=== PATIENT | female | born 1935 | race Caucasian/White ===

== ENCOUNTER 2016-10-21 15:35 | Inpatient (IN) | payer MEDICARE, MEDICAID ==
[~2016-10-21] VITALS: Ht 165.1 cm; Wt 79.4 kg
[~2016-10-21 15:35] MED LIST: CLON1TAB4 PO; CLOP75TA33 PO; CYAN10009 PO; DONE10TA43 PO; FURO40TA5 PO; INSU3INS6 SUBCUT; LEVO50TA8 PO; MEMA5TAB15 PO; OMEP20CA10 PO; POTA20TA12 PO; QUET25TA PO; QUET50TA PO
[2016-10-21] MEDS ORDERED: ALBUTEROL (0.083%) 2.5MG/3ML NEB HHN STA (17:47)
[2016-10-21] MEDS ORDERED: NITROGLYCERIN OINT 1GM/INCH UDPKT TD ONE (18:00)
[2016-10-21] MEDS ORDERED: FUROSEMIDE 40MG/4ML VIAL IV ONE (18:00)
[2016-10-21] MEDS ORDERED: ASPIRIN 81MG TABLET PO ONE (18:00)
[2016-10-21 18:15] LABS: BASOPHILS % 1.1 % (0.0-2.0); EOSINOPHILS % 1.5 % (0.0-5.0); HEMATOCRIT. 42.5 % (36.0-48.0); HEMOGLOBIN. 14.1 g/dL (12.0-16.0); LYMPHOCYTES % 31.5 % (20.0-50.0); MEAN CORPUSCULAR HEMOGLOBIN 28.7 pg (28.0-32.0); MEAN CORPUSCULAR VOLUME 86.1 fL (81.0-99.0); NEUTROPHILS % 55.9 % (40.0-76.0); PLATELET 232 x1000/uL (130-400); RED BLOOD CELL COUNT 4.93 mill/uL (4.2-5.4); RED CELL DISTRIBUTION WIDTH 14.6 % (11.6-14.6)
[2016-10-21 18:21] LABS: PROTHROMBIN TIME 10.8 sec (9.4-11.6)
[2016-10-21 18:23] LABS: CARBON DIOXIDE 29 mEq/L (21-32); CHLORIDE 103 mEq/L (98-107)
[2016-10-21 18:30] LABS: TROPONIN I < 0.02 ng/mL (0.00-0.04)
[2016-10-21] MEDS ORDERED: IPRATROPIUM/ALBUTEROL 0.5-3(2.5)MG/3ML NEB INH PRN (22:15)
[2016-10-21] MEDS ORDERED: DOCUSATE SODIUM 100MG CAPSULE PO PRN (22:15)
[2016-10-21] MEDS ORDERED: ONDANSETRON HCL 4MG/2ML VIAL IV PRN (22:15)
[2016-10-21] MEDS ORDERED: ACETAMINOPHEN 325MG TABLET PO PRN (22:15)
[2016-10-21] MEDS ORDERED: INSLIS SQ ×2 (23:00)
[2016-10-21] MEDS ORDERED: POTA20TA82 PO (23:00)
[2016-10-21] MEDS ORDERED: SPIR25TA4 PO (23:00)
[2016-10-21] MEDS ORDERED: INSLAN SQ (23:11)
[2016-10-21] MEDS ORDERED: MEMA10TA2 PO (23:11)
[2016-10-21] MEDS ORDERED: NON FORMULARY PATIENT HOME MED EA XX SCH (23:15)
[2016-10-21] MEDS ORDERED: DEXTROSE 50% WATER 50ML SYRINGE IV PRN (23:15)
[2016-10-21 23:55] VITALS: BP 109/57
[2016-10-22] VITALS: BP 129/57
[2016-10-22] MEDS: QUETIAPINE FUMARATE 50MG TABLET PO SCH ×2 (00:38→20:35)
[2016-10-22] MEDS: IPRATROPIUM/ALBUTEROL 0.5-3(2.5)MG/3ML NEB INH SCH ×4 (01:42→20:10)
[2016-10-22 04:00] VITALS: BP 132/64
[2016-10-22] MEDS: BLOOD SUGAR DIAGNOSTIC STRIP TEST SCH ×4 (06:25→20:36)
[2016-10-22] MEDS: LEVOTHYROXINE SODIUM 50MCG TABLET PO SCH (06:27)
[2016-10-22] MEDS: OMEPRAZOLE 20MG CAPSULE EXTENDED RELEASE PO SCH (06:27)
[2016-10-22 07:10] LABS: BASOPHILS % 0.7 % (0.0-2.0); EOSINOPHILS % 0.5 % (0.0-5.0); HEMATOCRIT. 40.2 % (36.0-48.0); HEMOGLOBIN. 13.3 g/dL (12.0-16.0); LYMPHOCYTES % 23.9 % (20.0-50.0); MEAN CORPUSCULAR HEMOGLOBIN 28.7 pg (28.0-32.0); MEAN CORPUSCULAR VOLUME 86.9 fL (81.0-99.0); MEAN PLATELET VOLUME 10.3 fl (7.4-10.4); MONOCYTES % 8.4 % (2.0-8.0); NEUTROPHILS % 66.5 % (40.0-76.0); PLATELET 228 x1000/uL (130-400); RED BLOOD CELL COUNT 4.62 mill/uL (4.2-5.4); RED CELL DISTRIBUTION WIDTH 14.6 % (11.6-14.6)
[2016-10-22] MEDS: INSULIN LISPRO 100 UNITS/ML SUBCUT SCH ×4 (07:50→20:36)
[2016-10-22 08:01] VITALS: BP 163/66
[2016-10-22 08:24] LABS: CARBON DIOXIDE 30 mEq/L (21-32); CHLORIDE 101 mEq/L (98-107)
[2016-10-22] MEDS: MEMANTINE HCL 10MG TABLET PO SCH ×2 (08:39→17:55)
[2016-10-22] MEDS: FUROSEMIDE 40MG TABLET PO SCH (08:39)
[2016-10-22] MEDS: POTASSIUM CHLORIDE 20MEQ TABLET SR PO SCH (08:39)
[2016-10-22] MEDS: CLOPIDOGREL 75MG TABLET PO SCH (08:39)
[2016-10-22] MEDS: QUETIAPINE FUMARATE 25MG TABLET PO SCH (08:39)
[2016-10-22] MEDS: SPIRONOLACTONE 25MG TABLET PO SCH ×2 (08:40→10:56)
[2016-10-22] MEDS ORDERED: POTASSIUM CHLORIDE 20MEQ TABLET SR PO NR (09:45)
[2016-10-22] MEDS ORDERED: INSULIN DETEMIR UD 100 UNITS/ML SYR SUBCUT SCH (10:00)
[2016-10-22] MEDS: AMLODIPINE 5MG TABLET PO SCH ×2 (10:55→20:35)
[2016-10-22] MEDS: DONEPEZIL HCL 10MG TABLET PO SCH (11:13)
[2016-10-22] MEDS: INSULIN DETEMIR UD 100 UNITS/ML SYR SUBCUT SCH (11:17)
[2016-10-22] MEDS: LOSARTAN POTASSIUM 25 MG TABLET PO SCH (11:22)
[2016-10-22 11:51] VITALS: BP 131/76
[2016-10-22] MEDS ORDERED: INSULIN LISPRO 100 UNITS/ML SUBCUT SCH ×2 (12:20→17:20)
[2016-10-22 15:55] VITALS: BP 106/72
[2016-10-22] MEDS ORDERED: QUETIAPINE FUMARATE 25MG TABLET PO SCH (17:00)
[2016-10-22 19:54] VITALS: BP 137/65
[2016-10-22] MEDS: BUDESONIDE 0.5MG/2ML NEB HHN SCH (20:09)
[2016-10-22] MEDS ORDERED: QUETIAPINE FUMARATE 50MG TABLET PO SCH (21:00)
[2016-10-22] MEDS ORDERED: CLONAZEPAM 1MG TABLET PO SCH (21:00)
[2016-10-23 00:19] VITALS: BP 110/51
[2016-10-23] MEDS: IPRATROPIUM/ALBUTEROL 0.5-3(2.5)MG/3ML NEB INH SCH ×2 (01:11→08:58)
[2016-10-23 05:09] VITALS: BP 139/69
[2016-10-23] MEDS: LEVOTHYROXINE SODIUM 50MCG TABLET PO SCH (06:36)
[2016-10-23] MEDS: OMEPRAZOLE 20MG CAPSULE EXTENDED RELEASE PO SCH (06:36)
[2016-10-23] MEDS: BLOOD SUGAR DIAGNOSTIC STRIP TEST SCH (06:38)
[2016-10-23 06:45] LABS: BASOPHILS % 0.9 % (0.0-2.0); HEMATOCRIT. 40.3 % (36.0-48.0); HEMOGLOBIN. 13.4 g/dL (12.0-16.0); LYMPHOCYTES % 31.6 % (20.0-50.0); MEAN CORPUSCULAR VOLUME 87.3 fL (81.0-99.0); MEAN PLATELET VOLUME 10.4 fl (7.4-10.4); MONOCYTES % 10.4 % (2.0-8.0); NEUTROPHILS % 55.1 % (40.0-76.0); PLATELET 221 x1000/uL (130-400); RED BLOOD CELL COUNT 4.61 mill/uL (4.2-5.4); RED CELL DISTRIBUTION WIDTH 14.8 % (11.6-14.6)
[2016-10-23 07:44] LABS: CARBON DIOXIDE 30 mEq/L (21-32); CHLORIDE 103 mEq/L (98-107)
[2016-10-23] MEDS: INSULIN LISPRO 100 UNITS/ML SUBCUT SCH (07:50)
[2016-10-23 08:02] VITALS: BP 117/56
[2016-10-23] MEDS: BUDESONIDE 0.5MG/2ML NEB HHN SCH (08:57)
[2016-10-23] MEDS: CLOPIDOGREL 75MG TABLET PO SCH (09:16)
[2016-10-23] MEDS: MEMANTINE HCL 10MG TABLET PO SCH (09:17)
[2016-10-23] MEDS: POTASSIUM CHLORIDE 20MEQ TABLET SR PO SCH (09:17)
[2016-10-23] MEDS: DONEPEZIL HCL 10MG TABLET PO SCH (09:17)
[2016-10-23] MEDS: LOSARTAN POTASSIUM 25 MG TABLET PO SCH (09:17)
[2016-10-23] MEDS: AMLODIPINE 5MG TABLET PO SCH (09:17)
[2016-10-23] MEDS: QUETIAPINE FUMARATE 25MG TABLET PO SCH (09:18)
[2016-10-23] MEDS: FUROSEMIDE 40MG TABLET PO SCH (09:19)
[2016-10-23] MEDS ORDERED: SPIRONOLACTONE 25MG TABLET PO SCH (09:30)
[2016-10-23] MEDS: INSULIN DETEMIR UD 100 UNITS/ML SYR SUBCUT SCH (10:00)
[2016-10-23 11:02] VITALS: BP 122/71
== END 2016-10-23 11:40 | disposition home or self-care (01) | DRG 140 ==
LOC: ER 16:16 → 6WST 21:08 → ENRESERV 21:28
PROVIDERS: ADMIT Family Medicine Adult Medicine; ATTEND Family Medicine Adult Medicine
DX: J44.1 Chronic obstructive pulmonary disease with (acute) exacerbation (principal); J96.01 Acute respiratory failure with hypoxia; J44.0 Chronic obstructive pulmonary disease with (acute) lower respiratory infection; F03.90 Unspecified dementia, unspecified severity, without behavioral disturbance, psychotic disturbance, mood disturbance, and anxiety; E11.9 Type 2 diabetes mellitus without complications; E03.9 Hypothyroidism, unspecified; E87.6 Hypokalemia; I25.10 Atherosclerotic heart disease of native coronary artery without angina pectoris; I10 Essential (primary) hypertension; F41.9 Anxiety disorder, unspecified; J20.9 Acute bronchitis, unspecified; K59.00 Constipation, unspecified; Z95.5 Presence of coronary angioplasty implant and graft; Z88.6 Allergy status to analgesic agent; Z88.5 Allergy status to narcotic agent; Z88.0 Allergy status to penicillin; Z79.4 Long term (current) use of insulin; Z79.02 Long term (current) use of antithrombotics/antiplatelets; Z90.49 Acquired absence of other specified parts of digestive tract; Z79.899 Other long term (current) drug therapy; Z82.49 Family history of ischemic heart disease and other diseases of the circulatory system
CPT/HCPCS: 36415; 71010; 74000; 76700; 80048; 80053; 82962; 83036; 83690; 83735; 83880; 84443; 84484; 85025; 85610; 93005; 93306; 93970; 94640; 94664; 96374; 99285; J1815; J1940; J2405; J7611; J7620; J7626

== ENCOUNTER 2016-12-12 10:30 | Emergency (ER) | payer MEDICARE, MEDICAID ==
[~2016-12-12] VITALS: Ht 165.1 cm; Wt 83.0 kg
[~2016-12-12 10:30] MED LIST changes: +INSLAN SQ; +INSLIS SQ; +MEMA10TA2 PO; +POTA20TA82 PO; +SPIR25TA4 PO
[2016-12-12 12:18] VITALS: BP 157/77
== END 2016-12-12 12:53 | disposition home or self-care (01) ==
LOC: ER 10:44
DX: B02.29 Other postherpetic nervous system involvement (principal); F03.90 Unspecified dementia, unspecified severity, without behavioral disturbance, psychotic disturbance, mood disturbance, and anxiety; I10 Essential (primary) hypertension; E11.9 Type 2 diabetes mellitus without complications; Z88.0 Allergy status to penicillin; Z88.5 Allergy status to narcotic agent; Z88.8 Allergy status to other drugs, medicaments and biological substances; Z79.4 Long term (current) use of insulin
CPT/HCPCS: 99283

== ENCOUNTER 2017-01-22 12:46 | Emergency (ER) | payer MEDICARE, MEDICAID ==
[~2017-01-22] VITALS: Ht 165.1 cm; Wt 70.0 kg
[2017-01-22 13:33] LABS: BASOPHILS % 0.6 % (0.0-2.0); EOSINOPHILS % 1.4 % (0.0-5.0); HEMATOCRIT. 39.1 % (36.0-48.0); HEMOGLOBIN. 12.9 g/dL (12.0-16.0); MEAN CORPUSCULAR HEMOGLOBIN 29.6 pg (28.0-32.0); MEAN CORPUSCULAR VOLUME 89.9 fL (81.0-99.0); MEAN PLATELET VOLUME 9.8 fl (7.4-10.4); MONOCYTES % 8.5 % (2.0-8.0); NEUTROPHILS % 62.5 % (40.0-76.0); PLATELET 236 x1000/uL (130-400); RED BLOOD CELL COUNT 4.35 mill/uL (4.2-5.4); RED CELL DISTRIBUTION WIDTH 14.6 % (11.6-14.6)
[2017-01-22 13:35] LABS: PROTHROMBIN TIME 10.4 sec (9.4-11.6)
[2017-01-22 13:43] LABS: CARBON DIOXIDE 35 mEq/L (21-32); CHLORIDE 99 mEq/L (98-107)
[2017-01-22 14:59] VITALS: BP 128/74
== END 2017-01-22 15:01 | disposition home or self-care (01) ==
LOC: ER 13:04
DX: R53.1 Weakness (principal); R42 Dizziness and giddiness; I10 Essential (primary) hypertension; F03.90 Unspecified dementia, unspecified severity, without behavioral disturbance, psychotic disturbance, mood disturbance, and anxiety; E11.9 Type 2 diabetes mellitus without complications; Z88.0 Allergy status to penicillin; Z88.5 Allergy status to narcotic agent; Z79.4 Long term (current) use of insulin; Z79.899 Other long term (current) drug therapy
CPT/HCPCS: 36415; 71010; 80053; 83605; 85025; 85610; 87040; 93005; 99285

== ENCOUNTER 2017-02-06 09:50 | Emergency (ER) | payer MEDICARE, MEDICAID ==
[~2017-02-06] VITALS: Ht 162.6 cm; Wt 77.0 kg
[2017-02-06] MEDS ORDERED: ONDANSETRON HCL 4MG/2ML VIAL IV ONE (11:30)
[2017-02-06 11:48] LABS: CLARITY URINE CLOUDY (CLEAR); COLOR URINE YELLOW (YELLOW); KETONES URINE NEGATIVE (NEGATIVE); LEUKOCYTE ESTERASE URINE 3+ (NEGATIVE); NITRITE URINE POSITIVE (NEGATIVE); OCCULT BLOOD URINE TRACE (NEGATIVE); PH URINE 6.5 (4.5-8.0); PROTEIN URINE NEGATIVE (NEGATIVE); SPECIFIC GRAVITY URINE 1.012 (1.005-1.030)
[2017-02-06 11:50] LABS: BASOPHILS % 0.7 % (0.0-2.0); EOSINOPHILS % 0.7 % (0.0-5.0); HEMATOCRIT. 40.6 % (36.0-48.0); HEMOGLOBIN. 13.3 g/dL (12.0-16.0); LYMPHOCYTES % 18.9 % (20.0-50.0); MEAN CORPUSCULAR HEMOGLOBIN 29.6 pg (28.0-32.0); MEAN CORPUSCULAR VOLUME 90.3 fL (81.0-99.0); MONOCYTES % 7.3 % (2.0-8.0); NEUTROPHILS % 72.4 % (40.0-76.0); PLATELET 260 x1000/uL (130-400); RED BLOOD CELL COUNT 4.49 mill/uL (4.2-5.4); RED CELL DISTRIBUTION WIDTH 14.1 % (11.6-14.6)
[2017-02-06 12:02] LABS: CARBON DIOXIDE 37 mEq/L (21-32); CHLORIDE 99 mEq/L (98-107); TROPONIN I < 0.02 ng/mL (0.00-0.04)
[2017-02-06 12:18] VITALS: BP 127/78
== END 2017-02-06 12:46 | disposition home or self-care (01) ==
LOC: ER 09:50
DX: N39.0 Urinary tract infection, site not specified (principal); I10 Essential (primary) hypertension; K59.09 Other constipation; F03.90 Unspecified dementia, unspecified severity, without behavioral disturbance, psychotic disturbance, mood disturbance, and anxiety; E11.9 Type 2 diabetes mellitus without complications; Z88.0 Allergy status to penicillin; Z88.5 Allergy status to narcotic agent; Z88.8 Allergy status to other drugs, medicaments and biological substances; Z79.4 Long term (current) use of insulin; Z79.01 Long term (current) use of anticoagulants
CPT/HCPCS: 36415; 51701; 80053; 81001; 83735; 84484; 85025; 87077; 87086; 87186; 93005; 99285

== ENCOUNTER 2017-04-12 15:47 | Emergency (ER) | payer MEDICARE, MEDICAID ==
[~2017-04-12] VITALS: Ht 165.1 cm; Wt 86.0 kg
[2017-04-12] MEDS ORDERED: KETOROLAC 30MG/ML VIAL IV STA (16:08)
[2017-04-12 16:30] LABS: BASOPHILS % 0.9 % (0.0-2.0); EOSINOPHILS % 2.7 % (0.0-5.0); HEMATOCRIT. 41.8 % (36.0-48.0); HEMOGLOBIN. 13.8 g/dL (12.0-16.0); LYMPHOCYTES % 28.2 % (20.0-50.0); MEAN CORPUSCULAR HEMOGLOBIN 29.3 pg (28.0-32.0); MEAN CORPUSCULAR VOLUME 88.9 fL (81.0-99.0); MEAN PLATELET VOLUME 9.7 fl (7.4-10.4); MONOCYTES % 7.6 % (2.0-8.0); NEUTROPHILS % 60.6 % (40.0-76.0); PLATELET 265 x1000/uL (130-400)
[2017-04-12 16:37] LABS: INR 1.1
[2017-04-12 16:45] LABS: CHLORIDE 102 mEq/L (98-107); TROPONIN I < 0.02 ng/mL (0.00-0.04)
[2017-04-12 18:25] VITALS: BP 135/70
== END 2017-04-12 18:48 | disposition home or self-care (01) ==
LOC: ER 18:46
DX: M54.5 Low back pain (principal); G89.29 Other chronic pain; E11.65 Type 2 diabetes mellitus with hyperglycemia; I10 Essential (primary) hypertension; Z79.4 Long term (current) use of insulin; Z88.0 Allergy status to penicillin; Z88.6 Allergy status to analgesic agent; W01.0XXA Fall on same level from slipping, tripping and stumbling without subsequent striking against object, initial encounter; Y93.89 Activity, other specified; Y92.018 Other place in single-family (private) house as the place of occurrence of the external cause
CPT/HCPCS: 36415; 70450; 71045; 72125; 72131; 80053; 83880; 84484; 85025; 85610; 93005; 96374; 99285; J1885

== ENCOUNTER 2017-04-25 18:12 | Emergency (ER) | payer MEDICARE, MEDICAID ==
[~2017-04-25] VITALS: Ht 162.6 cm; Wt 78.0 kg
[2017-04-25 18:54] LABS: BASOPHILS % 1.2 % (0.0-2.0); HEMATOCRIT. 40.4 % (36.0-48.0); HEMOGLOBIN. 13.2 g/dL (12.0-16.0); MEAN CORPUSCULAR HEMOGLOBIN 29.1 pg (28.0-32.0); MEAN CORPUSCULAR VOLUME 88.8 fL (81.0-99.0); NEUTROPHILS % 51.8 % (40.0-76.0); PLATELET 241 x1000/uL (130-400); RED BLOOD CELL COUNT 4.54 mill/uL (4.2-5.4); RED CELL DISTRIBUTION WIDTH 14.7 % (11.6-14.6)
[2017-04-25 19:04] LABS: CHLORIDE 102 mEq/L (98-107)
[2017-04-25 19:10] LABS: TROPONIN I < 0.02 ng/mL (0.00-0.04)
[2017-04-25 19:13] LABS: PROTHROMBIN TIME 10.3 sec (9.4-11.6)
[2017-04-25 20:12] LABS: BG CARBOXYHEMOGLOBIN 1.2 % (0.5-1.5); BG DEOXYHEMOGLOBIN 8.4 % (0.0-5.0); BG FRACTION INSPIRED OXYGEN 21; BG HCO3 ACT 31.8 mmol/L (22.0-26.0); BG METHEMOGLOBIN 0.3 % (0.0-1.5); BG OXYGEN SATURATION 91.5 % (92.0-98.5); BG OXYHEMOGLOBIN 90.1 % (94.0-97.0); BG PCO2 50.5 mmHg (35.0-45.0); BG PH 7.417 (7.350-7.450); BG PO2 62.1 mmHg (75.0-100.0); BG SAMPLE SITE RIGHT BRACHIAL; BG TOTAL HEMOGLOBIN 13.8 g/dL (12.0-18.0); BG VENT MODE ROOM AIR
[2017-04-25] MEDS ORDERED: ALBUTEROL (0.5%) 2.5MG/0.5ML NEB HHN ONE (20:45)
[2017-04-25] MEDS ORDERED: METHYLPREDNISOLONE SOD SUCC 125 MG/2 ML VIAL IV ONE (20:45)
[2017-04-25 21:40] VITALS: BP 129/66
== END 2017-04-25 21:40 | disposition home or self-care (01) ==
LOC: ER 18:45 → EDBEDREQTM 20:40 → EDBEDREQ 20:40 → CANRESERV 21:25 → ENRESERV 21:25 → CANRESERV 21:28 → CANBEDREQ 21:34 → ER 21:40
DX: J44.1 Chronic obstructive pulmonary disease with (acute) exacerbation (principal); I10 Essential (primary) hypertension; E11.9 Type 2 diabetes mellitus without complications; Z88.0 Allergy status to penicillin; Z88.5 Allergy status to narcotic agent; Z88.8 Allergy status to other drugs, medicaments and biological substances; Z79.4 Long term (current) use of insulin
CPT/HCPCS: 36415; 36600; 71045; 80053; 82375; 82805; 83880; 84484; 85025; 85610; 93005; 94640; 96374; 99285; J2930; J7611

== ENCOUNTER 2017-08-02 09:54 | Emergency (ER) | payer MEDICARE, MEDICAID ==
[~2017-08-02] VITALS: Ht 160 cm; Wt 76.0 kg
[~2017-08-02 09:54] MED LIST changes: -CLON1TAB4 PO; +CLON1TAB5 PO; -SPIR25TA4 PO; +SPIR25TA6 PO
[2017-08-02] MEDS ORDERED: KETOROLAC 60MG/2ML VIAL IM ONE (10:15)
[2017-08-02 12:24] VITALS: BP 175/95
== END 2017-08-02 12:29 | disposition home or self-care (01) ==
LOC: ER 09:55
DX: M25.552 Pain in left hip (principal); M54.89 Other dorsalgia; M85.80 Other specified disorders of bone density and structure, unspecified site; I10 Essential (primary) hypertension; E78.00 Pure hypercholesterolemia, unspecified; E11.9 Type 2 diabetes mellitus without complications; Z79.4 Long term (current) use of insulin; Z88.0 Allergy status to penicillin; Z88.6 Allergy status to analgesic agent; W01.0XXA Fall on same level from slipping, tripping and stumbling without subsequent striking against object, initial encounter; Y93.89 Activity, other specified; Y92.89 Other specified places as the place of occurrence of the external cause
CPT/HCPCS: 71101; 72170; 96372; 99284; J1885

== ENCOUNTER 2017-08-23 11:51 | Emergency (ER) | payer MEDICARE, MEDICAID ==
[~2017-08-23] VITALS: Ht 165.1 cm; Wt 82.0 kg
[2017-08-23] MEDS ORDERED: MORPHINE SULFATE 4 MG/ML CPJ (NOT FOR IM USE) IV STA (12:12)
[2017-08-23] MEDS ORDERED: ONDANSETRON HCL 4MG/2ML VIAL IV STA (12:12)
[2017-08-23] MEDS ORDERED: METOCLOPRAMIDE HCL 10MG/2ML VIAL IV ONE (12:30)
[2017-08-23 12:59] LABS: BASOPHILS % 0.8 % (0.0-2.0); EOSINOPHILS % 2.3 % (0.0-5.0); HEMOGLOBIN. 13.7 g/dL (12.0-16.0); LYMPHOCYTES % 22.8 % (20.0-50.0); MEAN CORPUSCULAR HEMOGLOBIN 29.7 pg (28.0-32.0); MEAN CORPUSCULAR VOLUME 88.9 fL (81.0-99.0); MEAN PLATELET VOLUME 9.6 fl (7.4-10.4); MONOCYTES % 7.9 % (2.0-8.0); NEUTROPHILS % 66.2 % (40.0-76.0); PLATELET 224 x1000/uL (130-400); RED BLOOD CELL COUNT 4.61 mill/uL (4.2-5.4); RED CELL DISTRIBUTION WIDTH 14.3 % (11.6-14.6)
[2017-08-23 13:06] LABS: CHLORIDE 101 mEq/L (98-107)
[2017-08-23 13:08] LABS: PARTIAL THROMBOPLASTIN TIME 26.8 sec (23.4-31.0); PROTHROMBIN TIME 10.6 sec (9.4-11.6)
[2017-08-23 15:03] LABS: CLARITY URINE CLEAR (CLEAR); COLOR URINE YELLOW (YELLOW); KETONES URINE NEGATIVE (NEGATIVE); LEUKOCYTE ESTERASE URINE 1+ (NEGATIVE); NITRITE URINE POSITIVE (NEGATIVE); OCCULT BLOOD URINE NEGATIVE (NEGATIVE); PROTEIN URINE NEGATIVE (NEGATIVE); SPECIFIC GRAVITY URINE 1.019 (1.005-1.030); UROBILINOGEN URINE 0.2 E.U./dL (0.2-1.0)
[2017-08-23 15:55] VITALS: BP 119/54
== END 2017-08-23 16:00 | disposition home or self-care (01) ==
LOC: ER 12:04
DX: N39.0 Urinary tract infection, site not specified (principal); E11.9 Type 2 diabetes mellitus without complications; I10 Essential (primary) hypertension; Z88.0 Allergy status to penicillin; Z88.6 Allergy status to analgesic agent; Z88.5 Allergy status to narcotic agent; Z79.899 Other long term (current) drug therapy
CPT/HCPCS: 36415; 71045; 74176; 80053; 81003; 82962; 83690; 83880; 84484; 85025; 85610; 85730; 87077; 87086; 87186; 93005; 96374; 96375; 99285; J2270; J2765

== ENCOUNTER 2017-08-25 12:54 | Emergency (ER) | payer MEDICARE, MEDICAID ==
[~2017-08-25] VITALS: Ht 157.5 cm; Wt 70.0 kg
[2017-08-25] MEDS ORDERED: MECLIZINE 25MG TABLET PO ONE (13:45)
[2017-08-25] MEDS ORDERED: ONDANSETRON 4MG ODT PO ONE (13:45)
[2017-08-25 15:00] LABS: BASOPHILS % 0.7 % (0.0-2.0); EOSINOPHILS % 1.3 % (0.0-5.0); HEMATOCRIT. 41.3 % (36.0-48.0); HEMOGLOBIN. 13.8 g/dL (12.0-16.0); LYMPHOCYTES % 20.7 % (20.0-50.0); MEAN CORPUSCULAR HEMOGLOBIN 29.8 pg (28.0-32.0); MEAN CORPUSCULAR VOLUME 89.4 fL (81.0-99.0); MEAN PLATELET VOLUME 9.5 fl (7.4-10.4); NEUTROPHILS % 68.3 % (40.0-76.0); PLATELET 227 x1000/uL (130-400); RED BLOOD CELL COUNT 4.62 mill/uL (4.2-5.4); RED CELL DISTRIBUTION WIDTH 14.5 % (11.6-14.6)
[2017-08-25 15:05] LABS: CHLORIDE 103 mEq/L (98-107)
[2017-08-25 16:24] VITALS: BP 125/75
== END 2017-08-25 16:32 | disposition home or self-care (01) ==
LOC: ER 13:33
DX: F03.90 Unspecified dementia, unspecified severity, without behavioral disturbance, psychotic disturbance, mood disturbance, and anxiety (principal); I10 Essential (primary) hypertension; Z88.0 Allergy status to penicillin; Z88.5 Allergy status to narcotic agent; Z88.6 Allergy status to analgesic agent
CPT/HCPCS: 36415; 70450; 80048; 85025; 93005; 99285; Q0162; J8597

== ENCOUNTER 2017-08-26 11:09 | Emergency (ER) | payer MEDICARE, MEDICAID ==
[~2017-08-26] VITALS: Ht 160 cm; Wt 70.0 kg
[2017-08-26] MEDS ORDERED: SODIUM CHLORIDE 0.9% 1,000 ML IV ONE (11:40)
[2017-08-26] MEDS ORDERED: ONDANSETRON HCL 4MG/2ML VIAL IV STA (11:40)
[2017-08-26 12:12] LABS: BASOPHILS % 0.7 % (0.0-2.0); EOSINOPHILS % 2.2 % (0.0-5.0); HEMATOCRIT. 39.2 % (36.0-48.0); MEAN CORPUSCULAR HEMOGLOBIN 29.7 pg (28.0-32.0); MEAN CORPUSCULAR VOLUME 89.2 fL (81.0-99.0); MEAN PLATELET VOLUME 9.5 fl (7.4-10.4); MONOCYTES % 9.1 % (2.0-8.0); PLATELET 216 x1000/uL (130-400); RED BLOOD CELL COUNT 4.39 mill/uL (4.2-5.4); RED CELL DISTRIBUTION WIDTH 14.3 % (11.6-14.6)
[2017-08-26 12:16] LABS: CHLORIDE 100 mEq/L (98-107); PROTHROMBIN TIME 10.8 sec (9.4-11.6)
[2017-08-26 12:44] LABS: CLARITY URINE CLEAR (CLEAR); COLOR URINE YELLOW (YELLOW); KETONES URINE NEGATIVE (NEGATIVE); LEUKOCYTE ESTERASE URINE NEGATIVE (NEGATIVE); NITRITE URINE NEGATIVE (NEGATIVE); OCCULT BLOOD URINE NEGATIVE (NEGATIVE); PROTEIN URINE NEGATIVE (NEGATIVE); SPECIFIC GRAVITY URINE 1.018 (1.005-1.030); UROBILINOGEN URINE 0.2 E.U./dL (0.2-1.0)
[2017-08-26 14:47] VITALS: BP 135/77
== END 2017-08-26 14:48 | disposition home or self-care (01) ==
LOC: ER 11:09
DX: R53.1 Weakness (principal); R11.0 Nausea; R68.83 Chills (without fever); I10 Essential (primary) hypertension
CPT/HCPCS: 36415; 71045; 80053; 81003; 82962; 83605; 83880; 84484; 85025; 85610; 87040; 87086; 93005; 96374; 99285; J2405; J7030

== ENCOUNTER 2017-11-22 12:45 | Emergency (ER) | payer MEDICARE, MEDICAID ==
[~2017-11-22] VITALS: Ht 157.5 cm; Wt 76.0 kg
[2017-11-22 16:34] VITALS: BP 128/72
== END 2017-11-22 16:36 | disposition home or self-care (01) ==
LOC: ER 13:02
DX: F03.90 Unspecified dementia, unspecified severity, without behavioral disturbance, psychotic disturbance, mood disturbance, and anxiety (principal); R53.1 Weakness; E11.9 Type 2 diabetes mellitus without complications; I10 Essential (primary) hypertension; Z88.0 Allergy status to penicillin; Z88.6 Allergy status to analgesic agent; Z88.5 Allergy status to narcotic agent; Z79.4 Long term (current) use of insulin; Z79.01 Long term (current) use of anticoagulants
CPT/HCPCS: 93005; 99283

== ENCOUNTER 2018-01-16 12:22 | Inpatient (IN) | payer MEDICARE, MEDICAID ==
[2018-01-16] VITALS: BP 139/74
[~2018-01-16] VITALS: Ht 162.6 cm; Wt 73.0 kg
[~2018-01-16 12:22] MED LIST changes: +CLON1TAB12 PO; -CLON1TAB5 PO
[2018-01-16 15:39] LABS: EOSINOPHILS % 2.3 % (0.0-5.0); HEMATOCRIT. 44.9 % (36.0-48.0); HEMOGLOBIN. 14.7 g/dL (12.0-16.0); LYMPHOCYTES % 30.5 % (20.0-50.0); MEAN CORPUSCULAR HEMOGLOBIN 29.8 pg (28.0-32.0); MEAN CORPUSCULAR VOLUME 90.8 fL (81.0-99.0); MEAN PLATELET VOLUME 9.5 fl (7.4-10.4); MONOCYTES % 8.9 % (2.0-8.0); NEUTROPHILS % 57.3 % (40.0-76.0); PLATELET 266 x1000/uL (130-400); RED BLOOD CELL COUNT 4.94 mill/uL (4.2-5.4); RED CELL DISTRIBUTION WIDTH 14.9 % (11.6-14.6)
[2018-01-16 15:48] LABS: CHLORIDE 101 mEq/L (98-107)
[2018-01-16 18:29] LABS: CLARITY URINE CLOUDY (CLEAR); COLOR URINE YELLOW (YELLOW); KETONES URINE NEGATIVE (NEGATIVE); LEUKOCYTE ESTERASE URINE 2+ (NEGATIVE); NITRITE URINE NEGATIVE (NEGATIVE); OCCULT BLOOD URINE NEGATIVE (NEGATIVE); PH URINE 7.5 (4.5-8.0); PROTEIN URINE NEGATIVE (NEGATIVE); SPECIFIC GRAVITY URINE 1.021 (1.005-1.030)
[2018-01-16 18:44] LABS: *BARBITURATES SCREEN URINE NEGATIVE (NEGATIVE)
[2018-01-16 18:45] LABS: *AMPHETAMINES SCREEN URINE NEGATIVE (NEGATIVE); *COCAINE SCREEN URINE NEGATIVE (NEGATIVE); METHADONE URINE SCREEN NEGATIVE (NEGATIVE); OPIATES URINE SCREEN NEGATIVE (NEGATIVE); PHENCYCLIDINE URINE SCREEN NEGATIVE (NEGATIVE)
[2018-01-16 18:46] LABS: CANNABINOID URINE SCREEN NEGATIVE (NEGATIVE)
[2018-01-16 18:49] LABS: *BENZODIAZEPINES SCREEN URINE NEGATIVE (NEGATIVE)
[2018-01-16] MEDS ORDERED: METHYLPREDNISOLONE SOD SUCC 40 MG/ML VIAL IV ONE (19:30)
[2018-01-16] MEDS ORDERED: IPRATROPIUM/ALBUTEROL 0.5-3(2.5)MG/3ML NEB HHN ONE (19:30)
[2018-01-16] MEDS ORDERED: DIPHENHYDRAMINE 50MG/ML VIAL IV PRN (22:00)
[2018-01-16] MEDS ORDERED: DOCUSATE SODIUM 100MG CAPSULE PO PRN (22:00)
[2018-01-16] MEDS ORDERED: ONDANSETRON HCL 4MG/2ML INJ IV PRN (22:00)
[2018-01-16] MEDS ORDERED: GUAIFENESIN 200MG/10ML SUGAR FREE UDC PO PRN (22:00)
[2018-01-16] MEDS ORDERED: IPRATROPIUM/ALBUTEROL 0.5-3(2.5)MG/3ML NEB INH PRN (22:00)
[2018-01-16] MEDS ORDERED: MAGNESIUM/ALUMINUM HYDROXIDE/SIMETHICONE 30ML UDC PO PRN (22:00)
[2018-01-16] MEDS ORDERED: ACETAMINOPHEN 325MG TABLET PO PRN (22:00)
[2018-01-16] MEDS ORDERED: CLONIDINE 0.1MG TABLET PO PRN (22:00)
[2018-01-16] MEDS ORDERED: DEXTROSE 50% WATER 50ML SYRINGE IV PRN ×2 (22:00→23:00)
[2018-01-16] MEDS ORDERED: CLON2TAB11 PO (23:51)
[2018-01-17] VITALS: BP 139/74
[2018-01-17] MEDS ORDERED: INSLIS SUBCUT (00:04)
[2018-01-17] MEDS ORDERED: SODIUM CHLORIDE 0.9% 1,000 ML IV SCH (00:16)
[2018-01-17] MEDS ORDERED: HYDROCODONE/ACETAMINOPHEN 5/325MG TABLET PO PRN (00:19)
[2018-01-17] MEDS ORDERED: MEDICATION NOT ON FORMULARY EA (Furosemide 40 MG) PO SCH (00:30)
[2018-01-17] MEDS ORDERED: POTA20TA82 MT (01:17)
[2018-01-17] MEDS: MEMANTINE HCL 10MG TABLET PO SCH ×3 (02:22→17:11)
[2018-01-17] MEDS: CLONAZEPAM 1MG TABLET PO SCH ×2 (02:22→20:59)
[2018-01-17] MEDS: QUETIAPINE FUMARATE 50MG TABLET PO SCH ×2 (02:22→20:59)
[2018-01-17 04:00] VITALS: BP 140/68
[2018-01-17] MEDS ORDERED: INSULIN REGULAR (HUMULIN R) 300UNITS/3ML IV SCH (04:00)
[2018-01-17 06:55] LABS: BASOPHILS % 0.4 % (0.0-2.0); HEMATOCRIT. 43.3 % (36.0-48.0); HEMOGLOBIN. 14.4 g/dL (12.0-16.0); LYMPHOCYTES % 16.1 % (20.0-50.0); MEAN CORPUSCULAR HEMOGLOBIN 30.2 pg (28.0-32.0); MEAN CORPUSCULAR VOLUME 90.6 fL (81.0-99.0); MEAN PLATELET VOLUME 9.9 fl (7.4-10.4); MONOCYTES % 2.4 % (2.0-8.0); NEUTROPHILS % 81.1 % (40.0-76.0); PLATELET 258 x1000/uL (130-400); RED BLOOD CELL COUNT 4.78 mill/uL (4.2-5.4); RED CELL DISTRIBUTION WIDTH 14.7 % (11.6-14.6)
[2018-01-17] MEDS: BLOOD SUGAR DIAGNOSTIC STRIP TEST SCH ×4 (06:59→20:30)
[2018-01-17] MEDS: INSULIN LISPRO 100 UNITS/ML SUBCUT SCH ×4 (07:04→20:58)
[2018-01-17] MEDS: OMEPRAZOLE 20MG CAPSULE EXTENDED RELEASE PO SCH ×2 (07:04→17:10)
[2018-01-17] MEDS: LEVOTHYROXINE SODIUM 50MCG TABLET PO SCH (07:06)
[2018-01-17 07:37] LABS: CHLORIDE 101 mEq/L (98-107)
[2018-01-17] MEDS ORDERED: INSULIN LISPRO 100 UNITS/ML SUBCUT SCH (07:40)
[2018-01-17 08:04] LABS: LDL CHOLESTEROL 92 mg/dL (5-100)
[2018-01-17 08:05] LABS: HDL CHOLESTEROL 47 mg/dL (40-59); T4 FREE 1.02 ng/dL (0.76-1.46)
[2018-01-17] MEDS: CYANOCOBALAMIN 1000MCG TABLET PO SCH (08:17)
[2018-01-17] MEDS: DONEPEZIL HCL 10MG TABLET PO SCH (08:17)
[2018-01-17] MEDS: QUETIAPINE FUMARATE 25MG TABLET PO SCH ×2 (08:17→17:11)
[2018-01-17] MEDS: FUROSEMIDE 40MG TABLET PO SCH (08:17)
[2018-01-17] MEDS: CLOPIDOGREL 75MG TABLET PO SCH (08:18)
[2018-01-17] MEDS: SPIRONOLACTONE 25MG TABLET PO SCH (08:18)
[2018-01-17] MEDS ORDERED: POTASSIUM CHLORIDE 20MEQ TABLET SR PO SCH ×2 (09:00)
[2018-01-17] MEDS ORDERED: CYANOCOBALAMIN PO SCH (09:00)
[2018-01-17] MEDS ORDERED: SPIRONOLACTONE PO SCH (09:00)
[2018-01-17 11:40] LABS: PHOSPHORUS 3.1 mg/dL (2.5-4.9)
[2018-01-17] MEDS ORDERED: REGADENOSON 0.4 MG/5 ML IV ONE (12:15)
[2018-01-17] MEDS ORDERED: [UNRECOGNIZED DRUG - OTHER] SUBCUT SCH (17:00)
[2018-01-17] MEDS ORDERED: INSULIN GLARGINE HUM REC ANLOG 40 UNIT SUBCUT SCH (17:00)
[2018-01-17 20:00] VITALS: BP 152/68
[2018-01-17] MEDS ORDERED: MEDICATION NOT ON FORMULARY EA (Clonazepam 2 MG) PO SCH (21:00)
[2018-01-17] MEDS: INSULIN GLARGINE UD 100 UNITS/ML SYR SUBCUT SCH (21:03)
[2018-01-18] VITALS: BP 142/70
[2018-01-18 04:00] VITALS: BP 135/65
[2018-01-18] MEDS: BLOOD SUGAR DIAGNOSTIC STRIP TEST SCH ×4 (06:03→21:00)
[2018-01-18] MEDS: OMEPRAZOLE 20MG CAPSULE EXTENDED RELEASE PO SCH ×2 (06:09→17:22)
[2018-01-18] MEDS: LEVOTHYROXINE SODIUM 50MCG TABLET PO SCH (06:09)
[2018-01-18] MEDS: INSULIN LISPRO 100 UNITS/ML SUBCUT SCH ×4 (06:11→21:00)
[2018-01-18 08:00] VITALS: BP 119/77
[2018-01-18] MEDS: FUROSEMIDE 40MG TABLET PO SCH (09:29)
[2018-01-18] MEDS: CLOPIDOGREL 75MG TABLET PO SCH (09:29)
[2018-01-18] MEDS: CYANOCOBALAMIN 1000MCG TABLET PO SCH (09:30)
[2018-01-18] MEDS: MEMANTINE HCL 10MG TABLET PO SCH ×2 (09:30→17:22)
[2018-01-18] MEDS: SPIRONOLACTONE 25MG TABLET PO SCH (09:30)
[2018-01-18] MEDS: QUETIAPINE FUMARATE 25MG TABLET PO SCH ×2 (09:30→13:50)
[2018-01-18] MEDS: DONEPEZIL HCL 10MG TABLET PO SCH (09:30)
[2018-01-18 12:00] VITALS: BP 139/78
[2018-01-18] MEDS ORDERED: REGADENOSON 0.4 MG/5 ML IV ONE (12:01)
[2018-01-18 16:00] VITALS: BP 143/75
[2018-01-18 20:00] VITALS: BP 102/56
[2018-01-18] MEDS: QUETIAPINE FUMARATE 50MG TABLET PO SCH (21:58)
[2018-01-18] MEDS: CLONAZEPAM 1MG TABLET PO SCH (21:59)
[2018-01-18] MEDS: INSULIN GLARGINE UD 100 UNITS/ML SYR SUBCUT SCH (22:00)
[2018-01-19] VITALS: BP 105/63
[2018-01-19 04:00] VITALS: BP 132/67
[2018-01-19] MEDS: INSULIN LISPRO 100 UNITS/ML SUBCUT SCH ×2 (05:52→13:25)
[2018-01-19] MEDS: BLOOD SUGAR DIAGNOSTIC STRIP TEST SCH ×2 (05:52→11:52)
[2018-01-19] MEDS: LEVOTHYROXINE SODIUM 50MCG TABLET PO SCH (06:27)
[2018-01-19] MEDS: OMEPRAZOLE 20MG CAPSULE EXTENDED RELEASE PO SCH (06:27)
[2018-01-19 08:08] VITALS: BP 135/72
[2018-01-19] MEDS: SPIRONOLACTONE 25MG TABLET PO SCH (08:26)
[2018-01-19] MEDS: CLOPIDOGREL 75MG TABLET PO SCH (08:27)
[2018-01-19] MEDS: MEMANTINE HCL 10MG TABLET PO SCH (08:27)
[2018-01-19] MEDS: DONEPEZIL HCL 10MG TABLET PO SCH (08:27)
[2018-01-19] MEDS: FUROSEMIDE 40MG TABLET PO SCH (08:27)
[2018-01-19] MEDS: CYANOCOBALAMIN 1000MCG TABLET PO SCH (08:27)
[2018-01-19] MEDS: QUETIAPINE FUMARATE 25MG TABLET PO SCH ×2 (08:28→14:37)
[2018-01-19] MEDS ORDERED: LACTULOSE 20G/30ML UDC PO NR (11:30)
[2018-01-19 12:00] VITALS: BP 140/77
[2018-01-19] MEDS ORDERED: DOCUSATE SODIUM 250MG CAPSULE PO SCH (12:45)
[2018-01-19] MEDS ORDERED: NA PHOS,M-B/NA PHOS,DI-BA ENEMA 118ML PR SCH (13:45)
[2018-01-19 15:55] VITALS: BP 140/77
[2018-01-19] MEDS ORDERED: LACTULOSE 20G/30ML UDC PO PRN (21:00)
== END 2018-01-19 16:15 | disposition home or self-care (01) | DRG 133 ==
LOC: ER 12:22 → 8WST 20:14 → EDBEDREQ 20:27 → EDBEDREQTM 20:27 → ENRESERV 21:52
PROVIDERS: ADMIT Family Medicine Adult Medicine; ATTEND Family Medicine Adult Medicine
DX: J96.20 Acute and chronic respiratory failure, unspecified whether with hypoxia or hypercapnia (principal); J84.9 Interstitial pulmonary disease, unspecified; E11.65 Type 2 diabetes mellitus with hyperglycemia; I50.9 Heart failure, unspecified; I11.0 Hypertensive heart disease with heart failure; J44.1 Chronic obstructive pulmonary disease with (acute) exacerbation; R07.89 Other chest pain; Z96.611 Presence of right artificial shoulder joint; I25.10 Atherosclerotic heart disease of native coronary artery without angina pectoris; N39.0 Urinary tract infection, site not specified; F03.90 Unspecified dementia, unspecified severity, without behavioral disturbance, psychotic disturbance, mood disturbance, and anxiety; E03.9 Hypothyroidism, unspecified; Z86.711 Personal history of pulmonary embolism; Z86.718 Personal history of other venous thrombosis and embolism; Z95.5 Presence of coronary angioplasty implant and graft; Z88.6 Allergy status to analgesic agent; Z88.5 Allergy status to narcotic agent; Z79.4 Long term (current) use of insulin; Z79.899 Other long term (current) drug therapy; Z88.0 Allergy status to penicillin
CPT/HCPCS: 36415; 71045; 78452; 80061; 80305; 82962; 83036; 83605; 83735; 83880; 84100; 84439; 84443; 84484; 93005; 93017; 93306; 93970; 94640; 96374; 97116; 97162; 97166; 99285; A9500; C1893; J1815; J2785; J2920; J7620

== ENCOUNTER 2018-02-24 16:06 | Emergency (ER) | payer MEDICARE, MEDICAID ==
[~2018-02-24] VITALS: Ht 160 cm; Wt 85.0 kg
[~2018-02-24 16:06] MED LIST changes: -CLON1TAB12 PO; +CLON2TAB11 PO; -INSLAN SQ; +INSLIS SUBCUT; -MEMA5TAB15 PO; -POTA20TA12 PO; +POTA20TA82 MT; -POTA20TA82 PO
[2018-02-24] MEDS ORDERED: SODIUM CHLORIDE 0.9% 1,000 ML IV ONE (16:24)
[2018-02-24 17:11] LABS: BASOPHILS % 0.9 % (0.0-2.0); EOSINOPHILS % 2.2 % (0.0-5.0); HEMATOCRIT. 44.5 % (36.0-48.0); HEMOGLOBIN. 14.6 g/dL (12.0-16.0); LYMPHOCYTES % 28.5 % (20.0-50.0); MEAN CORPUSCULAR HEMOGLOBIN 29.8 pg (28.0-32.0); MEAN CORPUSCULAR VOLUME 90.7 fL (81.0-99.0); MEAN PLATELET VOLUME 10.2 fl (7.4-10.4); MONOCYTES % 8.5 % (2.0-8.0); NEUTROPHILS % 59.9 % (40.0-76.0); PLATELET 245 x1000/uL (130-400); RED CELL DISTRIBUTION WIDTH 14.1 % (11.6-14.6)
[2018-02-24 17:15] LABS: CHLORIDE 100 mEq/L (98-107)
[2018-02-24 19:12] VITALS: BP 134/65
[2018-06-19] MEDS ORDERED: SPIR25TA6 PO (09:57)
== END 2018-02-24 19:13 | disposition home or self-care (01) ==
LOC: ER 16:06
DX: E86.0 Dehydration (principal); K21.9 Gastro-esophageal reflux disease without esophagitis; F03.90 Unspecified dementia, unspecified severity, without behavioral disturbance, psychotic disturbance, mood disturbance, and anxiety; E11.9 Type 2 diabetes mellitus without complications; I11.0 Hypertensive heart disease with heart failure; I50.9 Heart failure, unspecified; Z79.4 Long term (current) use of insulin; Z79.82 Long term (current) use of aspirin
CPT/HCPCS: 36415; 80053; 82962; 85025; 93005; 96360; 99284; J7030

== ENCOUNTER 2018-05-01 16:55 | Inpatient (IN) | payer MEDICARE, MEDICAID ==
[~2018-05-01] VITALS: Ht 165.1 cm; Wt 83.6 kg
[2018-05-01] MEDS ORDERED: OMEPRAZOLE 20MG CAPSULE EXTENDED RELEASE PO ONE (19:30)
[2018-05-01 20:04] LABS: CHLORIDE 103 mEq/L (98-107)
[2018-05-01 20:07] LABS: EOSINOPHILS % 2.3 % (0.0-5.0); HEMATOCRIT. 44.9 % (36.0-48.0); HEMOGLOBIN. 14.7 g/dL (12.0-16.0); LYMPHOCYTES % 27.5 % (20.0-50.0); MEAN CORPUSCULAR HEMOGLOBIN 30.2 pg (28.0-32.0); MEAN CORPUSCULAR VOLUME 92.1 fL (81.0-99.0); MEAN PLATELET VOLUME 10.5 fl (7.4-10.4); MONOCYTES % 8.3 % (2.0-8.0); NEUTROPHILS % 60.9 % (40.0-76.0); PLATELET 205 x1000/uL (130-400); RED BLOOD CELL COUNT 4.87 mill/uL (4.2-5.4); RED CELL DISTRIBUTION WIDTH 15.9 % (11.6-14.6)
[2018-05-01 21:40] LABS: INR 1.1; PROTHROMBIN TIME 10.6 sec (9.1-11.1)
[2018-05-01] MEDS ORDERED: PANTOPRAZOLE SODIUM 40 MG/VIAL IV SCH (23:15)
[2018-05-01] MEDS ORDERED: CLONIDINE 0.1MG TABLET PO PRN (23:15)
[2018-05-01] MEDS ORDERED: MAGNESIUM/ALUMINUM HYDROXIDE/SIMETHICONE 30ML UDC PO PRN (23:15)
[2018-05-01] MEDS ORDERED: IPRATROPIUM/ALBUTEROL 0.5-3(2.5)MG/3ML NEB INH PRN (23:15)
[2018-05-01] MEDS ORDERED: PANTOPRAZOLE SODIUM 40 MG/VIAL IV NR (23:45)
[2018-05-02 05:11] LABS: BASOPHILS % 1.2 % (0.0-2.0); EOSINOPHILS % 1.8 % (0.0-5.0); HEMATOCRIT. 44.8 % (36.0-48.0); HEMOGLOBIN. 14.7 g/dL (12.0-16.0); LYMPHOCYTES % 21.4 % (20.0-50.0); MEAN CORPUSCULAR HEMOGLOBIN 30.2 pg (28.0-32.0); MEAN CORPUSCULAR VOLUME 91.8 fL (81.0-99.0); MEAN PLATELET VOLUME 10.5 fl (7.4-10.4); MONOCYTES % 7.1 % (2.0-8.0); NEUTROPHILS % 68.5 % (40.0-76.0); PLATELET 206 x1000/uL (130-400); RED BLOOD CELL COUNT 4.88 mill/uL (4.2-5.4); RED CELL DISTRIBUTION WIDTH 16.1 % (11.6-14.6)
[2018-05-02 05:16] LABS: CHLORIDE 105 mEq/L (98-107)
[2018-05-02 05:21] LABS: PHOSPHORUS 2.9 mg/dL (2.5-4.9)
[2018-05-02 09:21] VITALS: BP 155/66
[2018-05-02] MEDS: PANTOPRAZOLE SODIUM 40 MG/VIAL IV SCH (10:14)
[2018-05-02] MEDS ORDERED: QUET50TA MT (10:50)
[2018-05-02] MEDS: DONEPEZIL HCL 10MG TABLET PO SCH (12:04)
[2018-05-02] MEDS: MEMANTINE HCL 10MG TABLET PO SCH ×2 (12:04→18:10)
[2018-05-02] MEDS: QUETIAPINE FUMARATE 25MG TABLET PO SCH (12:04)
[2018-05-02] MEDS: LEVOTHYROXINE SODIUM 50MCG TABLET PO SCH (12:04)
[2018-05-02] MEDS: OMEPRAZOLE 20MG CAPSULE EXTENDED RELEASE PO SCH ×2 (12:05→22:10)
[2018-05-02 12:14] VITALS: BP 128/66
[2018-05-02 16:00] VITALS: BP 136/68
[2018-05-02] MEDS ORDERED: ENOXAPARIN 80MG/0.8ML SYR SUBCUT SCH (16:00)
[2018-05-02] MEDS: BLOOD SUGAR DIAGNOSTIC STRIP TEST SCH ×2 (16:26→21:58)
[2018-05-02] MEDS ORDERED: INSULIN LISPRO 100 UNITS/ML SUBCUT SCH (17:40)
[2018-05-02 17:47] LABS: CLARITY URINE CLOUDY (CLEAR); COLOR URINE DARK YELLOW (YELLOW); KETONES URINE 1+ (NEGATIVE); LEUKOCYTE ESTERASE URINE 2+ (NEGATIVE); NITRITE URINE NEGATIVE (NEGATIVE); OCCULT BLOOD URINE NEGATIVE (NEGATIVE); PH URINE 5.5 (4.5-8.0); PROTEIN URINE NEGATIVE (NEGATIVE)
[2018-05-02] MEDS: INSULIN LISPRO 100 UNITS/ML SUBCUT SCH ×2 (18:30→22:12)
[2018-05-02] MEDS ORDERED: ONDANSETRON HCL 4MG/2ML INJ IV PRN (18:30)
[2018-05-02] MEDS ORDERED: DEXTROSE 50% WATER 50ML SYRINGE IV PRN (18:45)
[2018-05-02 20:00] VITALS: BP 147/82
[2018-05-02] MEDS ORDERED: CLONAZEPAM 1MG TABLET PO SCH (21:00)
[2018-05-02] MEDS ORDERED: QUETIAPINE FUMARATE 50MG TABLET PO SCH (21:00)
[2018-05-02] MEDS ORDERED: INSULIN GLARGINE UD 100 UNITS/ML SYR SUBCUT SCH (22:00)
[2018-05-03] VITALS: BP 137/62
[2018-05-03 04:00] VITALS: BP 130/60
[2018-05-03] MEDS: BLOOD SUGAR DIAGNOSTIC STRIP TEST SCH ×2 (06:17→12:03)
[2018-05-03] MEDS: INSULIN LISPRO 100 UNITS/ML SUBCUT SCH ×2 (06:17→12:40)
[2018-05-03 06:25] LABS: BASOPHILS % 0.7 % (0.0-2.0); EOSINOPHILS % 3.5 % (0.0-5.0); HEMOGLOBIN. 13.5 g/dL (12.0-16.0); LYMPHOCYTES % 29.7 % (20.0-50.0); MEAN CORPUSCULAR HEMOGLOBIN 30.2 pg (28.0-32.0); MEAN CORPUSCULAR VOLUME 91.7 fL (81.0-99.0); MEAN PLATELET VOLUME 11.2 fl (7.4-10.4); MONOCYTES % 9.1 % (2.0-8.0); PLATELET 192 x1000/uL (130-400); RED BLOOD CELL COUNT 4.47 mill/uL (4.2-5.4); RED CELL DISTRIBUTION WIDTH 15.6 % (11.6-14.6)
[2018-05-03 07:03] LABS: CHLORIDE 103 mEq/L (98-107)
[2018-05-03] MEDS: LEVOTHYROXINE SODIUM 50MCG TABLET PO SCH (07:13)
[2018-05-03 07:30] VITALS: BP 116/85
[2018-05-03] MEDS ORDERED: POTASSIUM CHLORIDE 20MEQ TABLET SR PO SCH (09:00)
[2018-05-03] MEDS ORDERED: CLOPIDOGREL 75MG TABLET PO SCH (09:00)
[2018-05-03] MEDS ORDERED: FUROSEMIDE 40MG TABLET PO SCH (09:00)
[2018-05-03] MEDS: PANTOPRAZOLE SODIUM 40 MG/VIAL IV SCH (09:59)
[2018-05-03] MEDS: MEMANTINE HCL 10MG TABLET PO SCH (10:00)
[2018-05-03] MEDS: QUETIAPINE FUMARATE 25MG TABLET PO SCH ×2 (10:00→12:40)
[2018-05-03] MEDS: DONEPEZIL HCL 10MG TABLET PO SCH (10:00)
[2018-05-03] MEDS: OMEPRAZOLE 20MG CAPSULE EXTENDED RELEASE PO SCH (10:00)
[2018-05-03 11:35] LABS: HEPATITIS B SURFACE ANTIGEN NEGATIVE
[2018-05-03 11:46] VITALS: BP 127/52
[2018-05-03 11:54] VITALS: BP 127/52
[2018-05-03 12:05] LABS: HEPATITIS A AB IGM NEGATIVE (NEGATIVE)
[2018-06-19] MEDS ORDERED: SPIR25TA6 PO (09:57)
== END 2018-05-03 12:55 | disposition home or self-care (01) | DRG 241 ==
LOC: ER 18:15 → 8WST 20:42 → ENRESERV 05-02 07:55
PROVIDERS: ADMIT Family Medicine Adult Medicine; ATTEND Family Medicine Adult Medicine
DX: K29.70 Gastritis, unspecified, without bleeding (principal); E11.40 Type 2 diabetes mellitus with diabetic neuropathy, unspecified; I11.0 Hypertensive heart disease with heart failure; I50.9 Heart failure, unspecified; E44.1 Mild protein-calorie malnutrition; K76.0 Fatty (change of) liver, not elsewhere classified; B17.9 Acute viral hepatitis, unspecified; F02.80 Dementia in other diseases classified elsewhere, unspecified severity, without behavioral disturbance, psychotic disturbance, mood disturbance, and anxiety; F41.9 Anxiety disorder, unspecified; J44.9 Chronic obstructive pulmonary disease, unspecified; E66.9 Obesity, unspecified; G30.9 Alzheimer's disease, unspecified; I25.10 Atherosclerotic heart disease of native coronary artery without angina pectoris; K21.9 Gastro-esophageal reflux disease without esophagitis; Z86.73 Personal history of transient ischemic attack (TIA), and cerebral infarction without residual deficits; Z79.4 Long term (current) use of insulin; Z90.49 Acquired absence of other specified parts of digestive tract; Z98.61 Coronary angioplasty status; Z68.30 Body mass index [BMI] 30.0-30.9, adult; Z88.0 Allergy status to penicillin; Z88.6 Allergy status to analgesic agent; Z79.899 Other long term (current) drug therapy
CPT/HCPCS: 36415; 71045; 76700; 80048; 80076; 82140; 82962; 83605; 83735; 84100; 86705; 86709; 86803; 87340; 93005; 93970; 96374; 96375; 99285; C9113; J1815; J2405

== ENCOUNTER 2018-05-22 12:23 | Emergency (ER) | payer MEDICARE, OTHER ==
[~2018-05-22] VITALS: Ht 154.9 cm; Wt 62.0 kg
[~2018-05-22 12:23] MED LIST changes: +QUET50TA MT; -QUET50TA PO; -SPIR25TA6 PO
[2018-05-22] MEDS ORDERED: SODIUM CHLORIDE 0.9% 1,000 ML IV ONE (13:10)
[2018-05-22 13:42] LABS: BASOPHILS % 1.1 % (0.0-2.0); EOSINOPHILS % 2.8 % (0.0-5.0); HEMATOCRIT. 44.7 % (36.0-48.0); LYMPHOCYTES % 34.1 % (20.0-50.0); MEAN CORPUSCULAR HEMOGLOBIN 30.6 pg (28.0-32.0); MEAN CORPUSCULAR VOLUME 91.6 fL (81.0-99.0); MEAN PLATELET VOLUME 9.9 fl (7.4-10.4); MONOCYTES % 8.9 % (2.0-8.0); NEUTROPHILS % 53.1 % (40.0-76.0); PLATELET 349 x1000/uL (130-400); RED BLOOD CELL COUNT 4.88 mill/uL (4.2-5.4); RED CELL DISTRIBUTION WIDTH 15.2 % (11.6-14.6)
[2018-05-22 13:50] LABS: PROTHROMBIN TIME 10.4 sec (9.1-11.1)
[2018-05-22 13:51] LABS: CHLORIDE 104 mEq/L (98-107)
[2018-05-22 16:10] VITALS: BP 160/75
[2018-06-19] MEDS ORDERED: SPIR25TA6 PO (09:57)
== END 2018-05-22 16:26 | disposition home or self-care (01) ==
LOC: ER 12:23 → CANRESERV 19:16 → ENRESERV 19:16 → CANBEDREQ 05-23 15:54
DX: F03.90 Unspecified dementia, unspecified severity, without behavioral disturbance, psychotic disturbance, mood disturbance, and anxiety (principal); E11.9 Type 2 diabetes mellitus without complications; Z88.0 Allergy status to penicillin; Z88.6 Allergy status to analgesic agent
CPT/HCPCS: 36415; 71045; 80053; 83605; 83880; 84484; 85025; 85610; 93005; 99284; J7030

== ENCOUNTER 2018-08-05 22:14 | Inpatient (IN) | payer MEDICARE, MEDICAID ==
[~2018-08-05] VITALS: Ht 162.6 cm; Wt 84.8 kg
[~2018-08-05 22:14] MED LIST changes: -OMEP20CA10 PO; +OMEP20CA5 PO; +SPIR25TA6 PO
[2018-08-05] MEDS ORDERED: ACETAMINOPHEN 325MG TABLET PO STA (23:13)
[2018-08-05 23:46] LABS: HEMATOCRIT. 45.1 % (36.0-48.0); HEMOGLOBIN. 15.1 g/dL (12.0-16.0); MEAN CORPUSCULAR HEMOGLOBIN 30.3 pg (28.0-32.0); MEAN CORPUSCULAR VOLUME 90.9 fL (81.0-99.0); MEAN PLATELET VOLUME 10.4 fl (7.4-10.4); PLATELET 275 x1000/uL (130-400); RED BLOOD CELL COUNT 4.97 mill/uL (4.2-5.4)
[2018-08-05 23:52] LABS: CHLORIDE 97 mEq/L (98-107)
[2018-08-05 23:59] LABS: PROTHROMBIN TIME 10.1 sec (9.6-11.0)
[2018-08-06] VITALS (9 sets, daily range): BP systolic 88–119; BP diastolic 47–60
[2018-08-06] MEDS ORDERED: SODIUM CHLORIDE 0.9% 1,000 ML IV ONE (00:22)
[2018-08-06] MEDS ORDERED: MEROPENEM 1,000 MG in SODIUM CHLORIDE 0.9% 100 ML IV SCH (01:00)
[2018-08-06] MEDS ORDERED: SODIUM CHLORIDE 0.9% 1000ML BAG (SEPSIS BOLUS) IV ONE (01:00)
[2018-08-06] MEDS ORDERED: VANCOMYCIN 1 G PREMIX 200 ML IV ONE (01:00)
[2018-08-06 01:24] LABS: ATYPICAL LYMPHOCYTES 5; PLATELET ESTIMATE NORMAL
[2018-08-06 01:51] LABS: CLARITY URINE CLEAR (CLEAR); COLOR URINE YELLOW (YELLOW); KETONES URINE NEGATIVE (NEGATIVE); LEUKOCYTE ESTERASE URINE NEGATIVE (NEGATIVE); NITRITE URINE NEGATIVE (NEGATIVE); OCCULT BLOOD URINE NEGATIVE (NEGATIVE); PROTEIN URINE NEGATIVE (NEGATIVE); SPECIFIC GRAVITY URINE 1.011 (1.005-1.030)
[2018-08-06] MEDS ORDERED: ACETAMINOPHEN 325MG TABLET PO PRN (05:00)
[2018-08-06] MEDS ORDERED: DEXTROSE 50% WATER 50ML SYRINGE IV PRN ×2 (05:00→08:00)
[2018-08-06] MEDS ORDERED: PIPERACILLIN/TAZ 3.375G PREMIX 50 ML IV SCH (06:00)
[2018-08-06] MEDS: OMEPRAZOLE 20MG CAPSULE EXTENDED RELEASE PO SCH ×2 (06:31→15:52)
[2018-08-06] MEDS: LEVOTHYROXINE SODIUM 50MCG TABLET PO SCH (06:31)
[2018-08-06 06:33] LABS: CHLORIDE 103 mEq/L (98-107)
[2018-08-06 06:43] LABS: PHOSPHORUS 2.8 mg/dL (2.5-4.9)
[2018-08-06] MEDS: BLOOD SUGAR DIAGNOSTIC STRIP TEST SCH ×4 (06:46→20:54)
[2018-08-06 06:49] LABS: HEMATOCRIT. 39.4 % (36.0-48.0); HEMOGLOBIN. 12.9 g/dL (12.0-16.0); MEAN CORPUSCULAR HEMOGLOBIN 30.1 pg (28.0-32.0); MEAN CORPUSCULAR VOLUME 91.8 fL (81.0-99.0); MEAN PLATELET VOLUME 10.7 fl (7.4-10.4); PLATELET 241 x1000/uL (130-400); RED BLOOD CELL COUNT 4.29 mill/uL (4.2-5.4); RED CELL DISTRIBUTION WIDTH 15.3 % (11.6-14.6)
[2018-08-06] MEDS: INSULIN LISPRO 100 UNITS/ML SUBCUT SCH ×2 (07:20→12:20)
[2018-08-06] MEDS ORDERED: ONDANSETRON HCL 4MG/2ML INJ IV PRN (08:00)
[2018-08-06] MEDS ORDERED: MAGNESIUM/ALUMINUM HYDROXIDE/SIMETHICONE 30ML UDC PO PRN (08:00)
[2018-08-06] MEDS ORDERED: INSULIN GLARGINE UD 100 UNITS/ML SYR SUBCUT SCH ×2 (08:15→10:00)
[2018-08-06] MEDS ORDERED: SODIUM CHLORIDE 0.45% 1,000 ML IV SCH (08:15)
[2018-08-06] MEDS ORDERED: SPIRONOLACTONE 25MG TABLET PO SCH (09:00)
[2018-08-06] MEDS: DONEPEZIL HCL 10MG TABLET PO SCH (09:00)
[2018-08-06] MEDS: MEMANTINE HCL 10MG TABLET PO SCH ×2 (09:00→20:25)
[2018-08-06] MEDS ORDERED: POTASSIUM CHLORIDE 20MEQ TABLET SR PO SCH (09:00)
[2018-08-06] MEDS: CLOPIDOGREL 75MG TABLET PO SCH (09:00)
[2018-08-06] MEDS ORDERED: FUROSEMIDE 40MG TABLET PO SCH (09:00)
[2018-08-06] MEDS: QUETIAPINE FUMARATE 25MG TABLET PO SCH ×2 (09:04→17:00)
[2018-08-06] MEDS: DEXT 5%/0.9% NACL KCL 20MEQ/L 1,000 ML IV SCH ×2 (09:39→20:53)
[2018-08-06 10:28] LABS: AMYLASE 260 IU/L (25-115)
[2018-08-06 10:52] LABS: PLATELET ESTIMATE NORMAL
[2018-08-06] MEDS ORDERED: BLOOD SUGAR DIAGNOSTIC STRIP TEST SCH (11:50)
[2018-08-06] MEDS: ENOXAPARIN 40MG/0.4ML SYR SUBCUT SCH (11:53)
[2018-08-06] MEDS ORDERED: VANCOMYCIN 1 G PREMIX 200 ML IV SCH (12:00)
[2018-08-06] MEDS: MEROPENEM 1,000 MG in SODIUM CHLORIDE 0.9% 100 ML IV SCH (15:52)
[2018-08-06 16:59] LABS: CLARITY URINE CLEAR (CLEAR); COLOR URINE DARK YELLOW (YELLOW); KETONES URINE NEGATIVE (NEGATIVE); LEUKOCYTE ESTERASE URINE NEGATIVE (NEGATIVE); NITRITE URINE NEGATIVE (NEGATIVE); OCCULT BLOOD URINE NEGATIVE (NEGATIVE); PROTEIN URINE NEGATIVE (NEGATIVE); SPECIFIC GRAVITY URINE 1.012 (1.005-1.030)
[2018-08-06] MEDS: CLONAZEPAM 0.5MG TABLET PO SCH (20:28)
[2018-08-06] MEDS: QUETIAPINE FUMARATE 50MG TABLET PO SCH (22:32)
[2018-08-07] VITALS (13 sets, daily range): BP systolic 94–145; BP diastolic 39–65
[2018-08-07] MEDS: MEROPENEM 1,000 MG in SODIUM CHLORIDE 0.9% 100 ML IV SCH ×2 (02:30→14:44)
[2018-08-07] MEDS: HYDROCODONE/ACETAMINOPHEN 5/325MG TABLET PO PRN (05:39)
[2018-08-07] MEDS: LEVOTHYROXINE SODIUM 50MCG TABLET PO SCH (05:40)
[2018-08-07] MEDS: OMEPRAZOLE 20MG CAPSULE EXTENDED RELEASE PO SCH (05:40)
[2018-08-07] MEDS: BLOOD SUGAR DIAGNOSTIC STRIP TEST SCH ×4 (06:51→20:27)
[2018-08-07 06:53] LABS: BASOPHILS % 0.7 % (0.0-2.0); EOSINOPHILS % 1.6 % (0.0-5.0); HEMATOCRIT. 35.7 % (36.0-48.0); HEMOGLOBIN. 11.8 g/dL (12.0-16.0); LYMPHOCYTES % 12.2 % (20.0-50.0); MEAN CORPUSCULAR HEMOGLOBIN 30.2 pg (28.0-32.0); MEAN CORPUSCULAR VOLUME 91.8 fL (81.0-99.0); MEAN PLATELET VOLUME 10.4 fl (7.4-10.4); MONOCYTES % 7.2 % (2.0-8.0); NEUTROPHILS % 78.3 % (40.0-76.0); PLATELET 206 x1000/uL (130-400); RED BLOOD CELL COUNT 3.89 mill/uL (4.2-5.4); RED CELL DISTRIBUTION WIDTH 15.3 % (11.6-14.6)
[2018-08-07 07:18] LABS: CHLORIDE 111 mEq/L (98-107)
[2018-08-07 07:37] LABS: PHOSPHORUS 1.6 mg/dL (2.5-4.9)
[2018-08-07] MEDS: DONEPEZIL HCL 10MG TABLET PO SCH (08:25)
[2018-08-07] MEDS: CLOPIDOGREL 75MG TABLET PO SCH (08:25)
[2018-08-07] MEDS: ENOXAPARIN 40MG/0.4ML SYR SUBCUT SCH (08:25)
[2018-08-07] MEDS: MEMANTINE HCL 10MG TABLET PO SCH ×2 (08:25→20:26)
[2018-08-07] MEDS: DEXT 5%/0.9% NACL KCL 20MEQ/L 1,000 ML IV SCH ×3 (08:27→18:44)
[2018-08-07] MEDS: QUETIAPINE FUMARATE 25MG TABLET PO SCH ×2 (10:38→17:10)
[2018-08-07] MEDS: FAMOTIDINE 20MG TABLET PO SCH (20:26)
[2018-08-07] MEDS: ENOXAPARIN 30MG/0.3ML SYR SUBCUT SCH (20:27)
[2018-08-07] MEDS: CLONAZEPAM 0.5MG TABLET PO SCH (20:27)
[2018-08-07] MEDS: QUETIAPINE FUMARATE 50MG TABLET PO SCH (21:19)
[2018-08-08] VITALS (13 sets, daily range): BP systolic 96–167; BP diastolic 46–89
[2018-08-08] MEDS: HYDROCODONE/ACETAMINOPHEN 5/325MG TABLET PO PRN (00:06)
[2018-08-08] MEDS: MEROPENEM 1,000 MG in SODIUM CHLORIDE 0.9% 100 ML IV SCH (02:10)
[2018-08-08] MEDS: LEVOTHYROXINE SODIUM 50MCG TABLET PO SCH (06:39)
[2018-08-08] MEDS: BLOOD SUGAR DIAGNOSTIC STRIP TEST SCH ×4 (06:39→21:22)
[2018-08-08 06:43] LABS: BASOPHILS % 0.9 % (0.0-2.0); EOSINOPHILS % 3.6 % (0.0-5.0); HEMOGLOBIN. 11.8 g/dL (12.0-16.0); LYMPHOCYTES % 21.5 % (20.0-50.0); MEAN CORPUSCULAR HEMOGLOBIN 30.1 pg (28.0-32.0); MEAN CORPUSCULAR VOLUME 92.2 fL (81.0-99.0); MONOCYTES % 7.9 % (2.0-8.0); NEUTROPHILS % 66.1 % (40.0-76.0); PLATELET 188 x1000/uL (130-400); RED CELL DISTRIBUTION WIDTH 15.3 % (11.6-14.6)
[2018-08-08 06:49] LABS: CHLORIDE 109 mEq/L (98-107)
[2018-08-08] MEDS: DONEPEZIL HCL 10MG TABLET PO SCH (08:38)
[2018-08-08] MEDS: CLOPIDOGREL 75MG TABLET PO SCH (08:39)
[2018-08-08] MEDS: FAMOTIDINE 20MG TABLET PO SCH ×2 (08:39→20:40)
[2018-08-08] MEDS: MEMANTINE HCL 10MG TABLET PO SCH ×2 (08:39→20:41)
[2018-08-08] MEDS: ENOXAPARIN 30MG/0.3ML SYR SUBCUT SCH ×2 (08:39→20:40)
[2018-08-08] MEDS: QUETIAPINE FUMARATE 25MG TABLET PO SCH ×2 (10:31→17:27)
[2018-08-08] MEDS: DOCUSATE SODIUM 100MG CAPSULE PO SCH (12:18)
[2018-08-08] MEDS: INSULIN LISPRO 100 UNITS/ML SUBCUT SCH ×3 (12:18→21:55)
[2018-08-08] MEDS: DEXT 5%/0.9% NACL KCL 20MEQ/L 1,000 ML IV SCH ×2 (12:18→21:20)
[2018-08-08] MEDS: CEFTRIAXONE 1 G PREMIX 50 ML IV SCH (15:17)
[2018-08-08] MEDS: CLONAZEPAM 0.5MG TABLET PO SCH (20:41)
[2018-08-08] MEDS: QUETIAPINE FUMARATE 50MG TABLET PO SCH (21:54)
[2018-08-08] MEDS: INSULIN GLARGINE UD 100 UNITS/ML SYR SUBCUT SCH (22:00)
[2018-08-09] VITALS (12 sets, daily range): BP systolic 116–172; BP diastolic 56–85
[2018-08-09] MEDS: DEXT IV SCH ×3 (01:20→17:58)
[2018-08-09] MEDS: NACL IV SCH ×3 (01:20→17:58)
[2018-08-09] MEDS: POTASSIUM CHLORIDE IV SCH ×3 (01:20→17:58)
[2018-08-09] MEDS: BLOOD SUGAR DIAGNOSTIC STRIP TEST SCH ×4 (06:17→21:00)
[2018-08-09] MEDS: LEVOTHYROXINE SODIUM 50MCG TABLET PO SCH (06:17)
[2018-08-09 07:02] LABS: CHLORIDE 107 mEq/L (98-107)
[2018-08-09 07:15] LABS: BASOPHILS % 1.2 % (0.0-2.0); EOSINOPHILS % 3.7 % (0.0-5.0); HEMATOCRIT. 34.8 % (36.0-48.0); HEMOGLOBIN. 11.5 g/dL (12.0-16.0); LYMPHOCYTES % 25.3 % (20.0-50.0); MEAN CORPUSCULAR HEMOGLOBIN 30.1 pg (28.0-32.0); MEAN CORPUSCULAR VOLUME 91.3 fL (81.0-99.0); MEAN PLATELET VOLUME 11.1 fl (7.4-10.4); NEUTROPHILS % 60.8 % (40.0-76.0); PLATELET 208 x1000/uL (130-400); RED BLOOD CELL COUNT 3.81 mill/uL (4.2-5.4); RED CELL DISTRIBUTION WIDTH 15.1 % (11.6-14.6)
[2018-08-09] MEDS: FAMOTIDINE 20MG TABLET PO SCH ×2 (08:20→22:05)
[2018-08-09] MEDS: DONEPEZIL HCL 10MG TABLET PO SCH (08:20)
[2018-08-09] MEDS: MEMANTINE HCL 10MG TABLET PO SCH ×2 (08:20→22:05)
[2018-08-09] MEDS: CLOPIDOGREL 75MG TABLET PO SCH (08:20)
[2018-08-09] MEDS: ENOXAPARIN 30MG/0.3ML SYR SUBCUT SCH ×2 (08:22→22:05)
[2018-08-09] MEDS: INSULIN LISPRO 100 UNITS/ML SUBCUT SCH ×4 (08:24→22:07)
[2018-08-09] MEDS: DOCUSATE SODIUM 100MG CAPSULE PO SCH (08:29)
[2018-08-09] MEDS: QUETIAPINE FUMARATE 25MG TABLET PO SCH ×2 (08:29→18:01)
[2018-08-09] MEDS: CEFTRIAXONE 1 G PREMIX 50 ML IV SCH (13:24)
[2018-08-09] MEDS ORDERED: HALOPERIDOL 5MG TABLET PO PRN (19:00)
[2018-08-09] MEDS: CLONIDINE 0.1MG TABLET PO PRN (22:04)
[2018-08-09] MEDS: CLONAZEPAM 0.5MG TABLET PO SCH (22:06)
[2018-08-09] MEDS: INSULIN GLARGINE UD 100 UNITS/ML SYR SUBCUT SCH (22:06)
[2018-08-09] MEDS: QUETIAPINE FUMARATE 50MG TABLET PO SCH (22:09)
[2018-08-10] VITALS: BP 111/58
[2018-08-10] MEDS: IPRATROPIUM/ALBUTEROL 0.5-3(2.5)MG/3ML NEB HHN SCH ×5 (03:24→16:43)
[2018-08-10] MEDS: NACL IV SCH (03:41)
[2018-08-10] MEDS: DEXT IV SCH (03:41)
[2018-08-10] MEDS: POTASSIUM CHLORIDE IV SCH (03:41)
[2018-08-10 04:00] VITALS: BP 158/76
[2018-08-10 06:14] LABS: BASOPHILS % 1.2 % (0.0-2.0); EOSINOPHILS % 4.5 % (0.0-5.0); HEMATOCRIT. 36.9 % (36.0-48.0); HEMOGLOBIN. 12.3 g/dL (12.0-16.0); LYMPHOCYTES % 25.7 % (20.0-50.0); MEAN CORPUSCULAR HEMOGLOBIN 30.2 pg (28.0-32.0); MEAN CORPUSCULAR VOLUME 91.2 fL (81.0-99.0); MEAN PLATELET VOLUME 10.7 fl (7.4-10.4); MONOCYTES % 8.8 % (2.0-8.0); NEUTROPHILS % 59.8 % (40.0-76.0); PLATELET 223 x1000/uL (130-400); RED BLOOD CELL COUNT 4.05 mill/uL (4.2-5.4); RED CELL DISTRIBUTION WIDTH 15.6 % (11.6-14.6)
[2018-08-10] MEDS: BLOOD SUGAR DIAGNOSTIC STRIP TEST SCH ×4 (06:23→21:53)
[2018-08-10 06:24] LABS: CHLORIDE 104 mEq/L (98-107)
[2018-08-10] MEDS: LEVOTHYROXINE SODIUM 50MCG TABLET PO SCH (06:34)
[2018-08-10 06:44] LABS: TOTAL IRON BINDING CAPACITY 267 ug/dL (250-450)
[2018-08-10] MEDS: INSULIN LISPRO 100 UNITS/ML SUBCUT SCH ×4 (07:28→21:53)
[2018-08-10 08:00] VITALS: BP 148/73
[2018-08-10] MEDS: CLOPIDOGREL 75MG TABLET PO SCH (09:43)
[2018-08-10] MEDS: QUETIAPINE FUMARATE 25MG TABLET PO SCH ×2 (09:43→17:55)
[2018-08-10] MEDS: ENOXAPARIN 30MG/0.3ML SYR SUBCUT SCH ×2 (09:43→21:52)
[2018-08-10] MEDS: DOCUSATE SODIUM 100MG CAPSULE PO SCH (09:43)
[2018-08-10] MEDS: FAMOTIDINE 20MG TABLET PO SCH ×2 (09:43→21:51)
[2018-08-10] MEDS: DONEPEZIL HCL 10MG TABLET PO SCH (09:43)
[2018-08-10] MEDS: MEMANTINE HCL 10MG TABLET PO SCH ×2 (09:47→21:58)
[2018-08-10 12:00] VITALS: BP 164/70
[2018-08-10] MEDS: CLONIDINE 0.1MG TABLET PO PRN (12:24)
[2018-08-10] MEDS ORDERED: CEFTRIAXONE 1 G PREMIX 50 ML IV SCH (14:00)
[2018-08-10 16:00] VITALS: BP 147/76
[2018-08-10 20:00] VITALS: BP 134/59
[2018-08-10] MEDS ORDERED: POTASSIUM CHLORIDE 20MEQ TABLET SR PO NR (20:15)
[2018-08-10] MEDS: CLONAZEPAM 0.5MG TABLET PO SCH (21:51)
[2018-08-10] MEDS: QUETIAPINE FUMARATE 50MG TABLET PO SCH (21:52)
[2018-08-10] MEDS: INSULIN GLARGINE UD 100 UNITS/ML SYR SUBCUT SCH (21:53)
[2018-08-11] VITALS: BP 135/67
[2018-08-11] MEDS: POTASSIUM CHLORIDE IV SCH ×3 (01:49→09:56)
[2018-08-11] MEDS: DEXT IV SCH ×3 (01:49→09:56)
[2018-08-11] MEDS: NACL IV SCH ×3 (01:49→09:56)
[2018-08-11 04:00] VITALS: BP 151/79
[2018-08-11] MEDS: LEVOTHYROXINE SODIUM 50MCG TABLET PO SCH (06:26)
[2018-08-11] MEDS: BLOOD SUGAR DIAGNOSTIC STRIP TEST SCH (06:26)
[2018-08-11 06:38] LABS: BASOPHILS % 1.1 % (0.0-2.0); EOSINOPHILS % 5.8 % (0.0-5.0); HEMATOCRIT. 36.2 % (36.0-48.0); HEMOGLOBIN. 12.2 g/dL (12.0-16.0); LYMPHOCYTES % 23.9 % (20.0-50.0); MEAN CORPUSCULAR HEMOGLOBIN 30.4 pg (28.0-32.0); MEAN CORPUSCULAR VOLUME 90.2 fL (81.0-99.0); MEAN PLATELET VOLUME 10.9 fl (7.4-10.4); MONOCYTES % 8.3 % (2.0-8.0); NEUTROPHILS % 60.9 % (40.0-76.0); PLATELET 244 x1000/uL (130-400); RED BLOOD CELL COUNT 4.02 mill/uL (4.2-5.4); RED CELL DISTRIBUTION WIDTH 15.3 % (11.6-14.6)
[2018-08-11 06:44] LABS: CHLORIDE 106 mEq/L (98-107)
[2018-08-11] MEDS: INSULIN LISPRO 100 UNITS/ML SUBCUT SCH ×2 (06:51→13:27)
[2018-08-11] MEDS: FAMOTIDINE 20MG TABLET PO SCH (09:55)
[2018-08-11] MEDS: QUETIAPINE FUMARATE 25MG TABLET PO SCH (09:55)
[2018-08-11] MEDS: DONEPEZIL HCL 10MG TABLET PO SCH (09:55)
[2018-08-11] MEDS: CLOPIDOGREL 75MG TABLET PO SCH (09:55)
[2018-08-11] MEDS: DOCUSATE SODIUM 100MG CAPSULE PO SCH (09:55)
[2018-08-11] MEDS: ENOXAPARIN 30MG/0.3ML SYR SUBCUT SCH (09:56)
[2018-08-11] MEDS: MEMANTINE HCL 10MG TABLET PO SCH (09:58)
[2018-08-11 12:29] VITALS: BP 148/69
[2018-08-11 14:55] VITALS: BP 148/69
[2018-08-11 16:00] VITALS: BP 184/83
[2018-08-11 19:11] LABS: ANTI-NUCLEAR ANTIBODIES DIRECT Positive (Negative)
[2018-08-12] MEDS ORDERED: ENOXAPARIN 40MG/0.4ML SYR SUBCUT SCH (09:00)
[2018-08-12 13:10] LABS: ACTIN (SMOOTH MUSCLE) ANTIBODY 4 Units (0-19); MITOCHONDRIAL M2 AB <20.0 Units (0.0-20.0)
== END 2018-08-11 16:29 | disposition home health service (06) | DRG 720 ==
LOC: ER 22:14 → EDBEDREQ 08-06 01:29 → EDBEDREQDT 08-06 01:29 → EDBEDREQTM 08-06 01:29 → ENRESERV 08-06 02:33 → 3WST 08-06 04:01 → 8WST 08-09 21:10
PROVIDERS: ADMIT Family Medicine Adult Medicine; ATTEND Family Medicine Adult Medicine
DX: A41.59 Other Gram-negative sepsis (principal); J96.01 Acute respiratory failure with hypoxia; E87.2 Acidosis; K85.90 Acute pancreatitis without necrosis or infection, unspecified; E11.9 Type 2 diabetes mellitus without complications; N28.1 Cyst of kidney, acquired; N31.9 Neuromuscular dysfunction of bladder, unspecified; J44.9 Chronic obstructive pulmonary disease, unspecified; K52.9 Noninfective gastroenteritis and colitis, unspecified; K21.9 Gastro-esophageal reflux disease without esophagitis; E66.9 Obesity, unspecified; I10 Essential (primary) hypertension; Z96.612 Presence of left artificial shoulder joint; K76.0 Fatty (change of) liver, not elsewhere classified; E03.9 Hypothyroidism, unspecified; R33.8 Other retention of urine; E78.5 Hyperlipidemia, unspecified; E78.00 Pure hypercholesterolemia, unspecified; G30.9 Alzheimer's disease, unspecified; F02.80 Dementia in other diseases classified elsewhere, unspecified severity, without behavioral disturbance, psychotic disturbance, mood disturbance, and anxiety; I25.10 Atherosclerotic heart disease of native coronary artery without angina pectoris; Z98.61 Coronary angioplasty status; Z90.49 Acquired absence of other specified parts of digestive tract; Z82.49 Family history of ischemic heart disease and other diseases of the circulatory system; Z83.3 Family history of diabetes mellitus; Z79.4 Long term (current) use of insulin; Z68.32 Body mass index [BMI] 32.0-32.9, adult; Z88.0 Allergy status to penicillin; Z88.6 Allergy status to analgesic agent; Z79.899 Other long term (current) drug therapy; Z79.890 Hormone replacement therapy
CPT/HCPCS: 36415; 71045; 74176; 74181; 76700; 80048; 80076; 80307; 82150; 82378; 82962; 83516; 83540; 83550; 83605; 83735; 84100; 84145; 84443; 84484; 86038; 86301; 87077; 87186; 93005; 93970; 94640; 96374; 99285; C1893; J0696; J1630; J1650; J1815; J2185; J3370; J3480; J7030; J7042; J7050; J7620; A4315

== ENCOUNTER 2018-09-11 10:56 | Inpatient (IN) | payer MEDICARE, MEDICAID ==
[~2018-09-11] VITALS: Ht 167.6 cm; Wt 83.9 kg
[~2018-09-11 10:56] MED LIST changes: -CYAN10009 PO
[2018-09-11] MEDS ORDERED: LEVOFLOXACIN 750MG PREMIX 150 ML IV ONE (12:00)
[2018-09-11] MEDS ORDERED: SODIUM CHLORIDE 0.9% 1000ML BAG (SEPSIS BOLUS) IV ONE (12:00)
[2018-09-11 12:20] LABS: BASOPHILS % 0.8 % (0.0-2.0); EOSINOPHILS % 4.9 % (0.0-5.0); HEMOGLOBIN. 13.6 g/dL (12.0-16.0); LYMPHOCYTES % 27.3 % (20.0-50.0); MEAN CORPUSCULAR HEMOGLOBIN 30.2 pg (28.0-32.0); MEAN CORPUSCULAR VOLUME 90.6 fL (81.0-99.0); MEAN PLATELET VOLUME 10.1 fl (7.4-10.4); MONOCYTES % 9.1 % (2.0-8.0); NEUTROPHILS % 57.9 % (40.0-76.0); PLATELET 243 x1000/uL (130-400); RED BLOOD CELL COUNT 4.52 mill/uL (4.2-5.4); RED CELL DISTRIBUTION WIDTH 15.2 % (11.6-14.6)
[2018-09-11 12:28] LABS: CHLORIDE 100 mEq/L (98-107)
[2018-09-11 12:33] LABS: PARTIAL THROMBOPLASTIN TIME 27.8 sec (23.4-31.0); PROTHROMBIN TIME 10.2 sec (9.6-11.0)
[2018-09-11 12:52] LABS: CLARITY URINE CLOUDY (CLEAR); COLOR URINE DARK YELLOW (YELLOW); KETONES URINE TRACE (NEGATIVE); LEUKOCYTE ESTERASE URINE 3+ (NEGATIVE); NITRITE URINE NEGATIVE (NEGATIVE); OCCULT BLOOD URINE TRACE (NEGATIVE); PH URINE 6.5 (4.5-8.0); PROTEIN URINE NEGATIVE (NEGATIVE); SPECIFIC GRAVITY URINE 1.024 (1.005-1.030)
[2018-09-11] MEDS ORDERED: GUAIFENESIN 200MG/10ML SUGAR FREE UDC PO PRN (15:00)
[2018-09-11] MEDS ORDERED: IOHEXOL-350 100 ML BOTTLE ONE (15:00)
[2018-09-11] MEDS ORDERED: ONDANSETRON HCL 4MG/2ML INJ IV PRN (15:00)
[2018-09-11] MEDS ORDERED: ACETAMINOPHEN 325MG TABLET PO PRN (15:00)
[2018-09-11] MEDS ORDERED: IPRATROPIUM/ALBUTEROL 0.5-3(2.5)MG/3ML NEB INH PRN (15:00)
[2018-09-11] MEDS ORDERED: DOCUSATE SODIUM 100MG CAPSULE PO PRN (15:00)
[2018-09-11] MEDS ORDERED: DEXTROSE 50% WATER 50ML SYRINGE IV PRN (15:00)
[2018-09-11] MEDS ORDERED: MAGNESIUM/ALUMINUM HYDROXIDE/SIMETHICONE 30ML UDC PO PRN (15:00)
[2018-09-11] MEDS ORDERED: CLONIDINE 0.1MG TABLET PO PRN (15:00)
[2018-09-11] MEDS ORDERED: NITROGLYCERIN 0.4MG TABLET SL SL PRN (15:00)
[2018-09-11 15:53] VITALS: BP 164/78
[2018-09-11 16:00] VITALS: BP 164/78
[2018-09-11] MEDS ORDERED: TRAMADOL 50MG TABLET PO PRN (17:00)
[2018-09-11] MEDS ORDERED: TAMS-11 PO (17:03)
[2018-09-11] MEDS: BLOOD SUGAR DIAGNOSTIC STRIP TEST SCH ×2 (17:30→23:16)
[2018-09-11] MEDS: ENOXAPARIN 40MG/0.4ML SYR SUBCUT SCH (17:30)
[2018-09-11] MEDS: GUAIFENESIN/DM 600MG/30MG ER TAB 12HR PO SCH (17:30)
[2018-09-11] MEDS: INSULIN LISPRO 100 UNITS/ML SUBCUT SCH ×2 (17:31→23:25)
[2018-09-11] MEDS ORDERED: AZITHROMYCIN 500 MG in DEXT 5% WATER 250 ML IV SCH (18:00)
[2018-09-11 20:00] VITALS: BP 100/51
[2018-09-11] MEDS ORDERED: CEFTRIAXONE 1 G PREMIX 50 ML IV SCH (20:00)
[2018-09-11] MEDS ORDERED: ZOLPIDEM TARTRATE 5MG TABLET PO PRN (21:00)
[2018-09-11] MEDS ORDERED: NA PHOS,M-B/NA PHOS,DI-BA ENEMA 118ML PR PRN (21:00)
[2018-09-11] MEDS ORDERED: INSULIN GLARGINE UD 100 UNITS/ML SYR SUBCUT SCH (22:00)
[2018-09-11] MEDS: QUETIAPINE FUMARATE 50MG TABLET PO SCH (23:16)
[2018-09-11] MEDS: ASCORBIC ACID 500 MG TABLET PO SCH (23:16)
[2018-09-11] MEDS: MEMANTINE HCL 10MG TABLET PO SCH (23:17)
[2018-09-11] MEDS: FAMOTIDINE 20MG TABLET PO SCH (23:17)
[2018-09-11] MEDS: SPIRONOLACTONE 25MG TABLET PO SCH (23:18)
[2018-09-11] MEDS: FUROSEMIDE 20MG TABLET PO SCH (23:24)
[2018-09-12 00:03] VITALS: BP 146/59
[2018-09-12 00:49] LABS: CREATINE KINASE 63 IU/L (26-192)
[2018-09-12 00:50] LABS: CREATINE KINASE MB FRACTION 1.2 ng/mL (0.5-3.6)
[2018-09-12 04:00] VITALS: BP 111/57
[2018-09-12] MEDS: LEVOTHYROXINE SODIUM 112MCG TABLET PO SCH (06:57)
[2018-09-12] MEDS: BLOOD SUGAR DIAGNOSTIC STRIP TEST SCH ×4 (07:01→21:00)
[2018-09-12] MEDS: GUAIFENESIN/DM 600MG/30MG ER TAB 12HR PO SCH ×2 (07:01→18:22)
[2018-09-12] MEDS: INSULIN LISPRO 100 UNITS/ML SUBCUT SCH ×4 (07:08→23:33)
[2018-09-12 08:00] VITALS: BP 142/80
[2018-09-12] MEDS ORDERED: ASPIRIN 325MG EC TABLET PO SCH (09:00)
[2018-09-12] MEDS: FUROSEMIDE 20MG TABLET PO SCH ×2 (09:16→20:48)
[2018-09-12] MEDS: ASCORBIC ACID 500 MG TABLET PO SCH ×2 (09:16→20:48)
[2018-09-12] MEDS: SPIRONOLACTONE 25MG TABLET PO SCH ×2 (09:16→20:49)
[2018-09-12] MEDS: MEMANTINE HCL 10MG TABLET PO SCH ×2 (09:16→20:48)
[2018-09-12] MEDS: ZINC SULFATE 220 MG ( 50 ) CAPSULE PO SCH (09:16)
[2018-09-12] MEDS: CLOPIDOGREL 75MG TABLET PO SCH (09:16)
[2018-09-12] MEDS: FAMOTIDINE 20MG TABLET PO SCH ×2 (09:16→20:48)
[2018-09-12 11:58] LABS: CREATINE KINASE 57 IU/L (26-192)
[2018-09-12 12:00] VITALS: BP 128/75
[2018-09-12 12:02] LABS: CREATINE KINASE MB FRACTION < 1.0 ng/mL (0.5-3.6)
[2018-09-12 16:00] VITALS: BP 152/85
[2018-09-12] MEDS: ENOXAPARIN 40MG/0.4ML SYR SUBCUT SCH (18:22)
[2018-09-12 20:00] VITALS: BP 154/72
[2018-09-12] MEDS: CEFTRIAXONE 1 G PREMIX 50 ML IV SCH (20:48)
[2018-09-12] MEDS: AZITHROMYCIN 500 MG in DEXT 5% WATER 250 ML IV SCH (20:49)
[2018-09-12] MEDS: QUETIAPINE FUMARATE 50MG TABLET PO SCH (20:51)
[2018-09-13] VITALS: BP 139/72
[2018-09-13] MEDS: INSULIN GLARGINE UD 100 UNITS/ML SYR SUBCUT SCH ×2 (00:46→23:30)
[2018-09-13 04:00] VITALS: BP 114/56
[2018-09-13] MEDS: GUAIFENESIN/DM 600MG/30MG ER TAB 12HR PO SCH ×2 (06:26→18:05)
[2018-09-13] MEDS: BLOOD SUGAR DIAGNOSTIC STRIP TEST SCH ×4 (06:35→21:00)
[2018-09-13 08:00] VITALS: BP 136/62
[2018-09-13] MEDS: INSULIN LISPRO 100 UNITS/ML SUBCUT SCH ×3 (08:10→23:25)
[2018-09-13] MEDS: CLOPIDOGREL 75MG TABLET PO SCH (08:21)
[2018-09-13] MEDS: ZINC SULFATE 220 MG ( 50 ) CAPSULE PO SCH (08:21)
[2018-09-13] MEDS: SPIRONOLACTONE 25MG TABLET PO SCH ×2 (08:22→23:48)
[2018-09-13] MEDS: MEMANTINE HCL 10MG TABLET PO SCH ×2 (08:22→23:23)
[2018-09-13] MEDS: FAMOTIDINE 20MG TABLET PO SCH ×2 (08:22→23:23)
[2018-09-13] MEDS: LEVOTHYROXINE SODIUM 112MCG TABLET PO SCH (08:24)
[2018-09-13] MEDS: ASCORBIC ACID 500 MG TABLET PO SCH ×2 (09:00→23:23)
[2018-09-13] MEDS: FUROSEMIDE 20MG TABLET PO SCH ×2 (09:00→23:23)
[2018-09-13 12:00] VITALS: BP 124/50
[2018-09-13 16:00] VITALS: BP 131/58
[2018-09-13] MEDS: ENOXAPARIN 40MG/0.4ML SYR SUBCUT SCH (18:05)
[2018-09-13 20:00] VITALS: BP 126/72
[2018-09-13] MEDS: NITROFURANTOIN 100MG M/M CAPSULE PO SCH (23:23)
[2018-09-13] MEDS: QUETIAPINE FUMARATE 50MG TABLET PO SCH (23:23)
[2018-09-13] MEDS: CEFTRIAXONE 1 G PREMIX 50 ML IV SCH (23:30)
[2018-09-13] MEDS: AZITHROMYCIN 500 MG in DEXT 5% WATER 250 ML IV SCH (23:31)
[2018-09-14] VITALS: BP 122/68
[2018-09-14 04:00] VITALS: BP 134/71
[2018-09-14] MEDS: GUAIFENESIN/DM 600MG/30MG ER TAB 12HR PO SCH ×2 (06:39→17:57)
[2018-09-14] MEDS: LEVOTHYROXINE SODIUM 112MCG TABLET PO SCH (06:40)
[2018-09-14] MEDS: BLOOD SUGAR DIAGNOSTIC STRIP TEST SCH ×4 (06:41→20:46)
[2018-09-14] MEDS: INSULIN LISPRO 100 UNITS/ML SUBCUT SCH ×4 (07:44→20:46)
[2018-09-14 08:00] VITALS: BP 118/57
[2018-09-14] MEDS: FUROSEMIDE 20MG TABLET PO SCH ×2 (08:21→20:40)
[2018-09-14] MEDS: ZINC SULFATE 220 MG ( 50 ) CAPSULE PO SCH (08:21)
[2018-09-14] MEDS: NITROFURANTOIN 100MG M/M CAPSULE PO SCH ×2 (08:21→20:41)
[2018-09-14] MEDS: MEMANTINE HCL 10MG TABLET PO SCH ×2 (08:21→20:40)
[2018-09-14] MEDS: CLOPIDOGREL 75MG TABLET PO SCH (08:21)
[2018-09-14] MEDS: ASCORBIC ACID 500 MG TABLET PO SCH ×2 (08:21→20:41)
[2018-09-14] MEDS: FAMOTIDINE 20MG TABLET PO SCH ×2 (08:21→20:40)
[2018-09-14] MEDS: SPIRONOLACTONE 25MG TABLET PO SCH ×2 (08:21→20:41)
[2018-09-14 12:00] VITALS: BP 117/66
[2018-09-14 16:00] VITALS: BP 126/63
[2018-09-14] MEDS: ENOXAPARIN 40MG/0.4ML SYR SUBCUT SCH (17:57)
[2018-09-14] MEDS ORDERED: ACETYLCYSTEINE 100MG/ML 10% VIAL 4ML INH SCH (18:00)
[2018-09-14 20:00] VITALS: BP 144/77
[2018-09-14] MEDS ORDERED: AZITHROMYCIN 500 MG TABLET PO SCH (20:00)
[2018-09-14] MEDS: QUETIAPINE FUMARATE 50MG TABLET PO SCH (20:40)
[2018-09-14] MEDS: INSULIN GLARGINE UD 100 UNITS/ML SYR SUBCUT SCH (21:17)
[2018-09-14] MEDS: CEFTRIAXONE 1 G PREMIX 50 ML IV SCH (21:17)
[2018-09-14] MEDS: IPRATROPIUM/ALBUTEROL 0.5-3(2.5)MG/3ML NEB HHN SCH (22:27)
[2018-09-15] VITALS: BP 130/57
[2018-09-15 04:00] VITALS: BP 131/65
[2018-09-15 04:11] VITALS: BP 131/65
[2018-09-15] MEDS: GUAIFENESIN/DM 600MG/30MG ER TAB 12HR PO SCH (06:11)
[2018-09-15] MEDS: BLOOD SUGAR DIAGNOSTIC STRIP TEST SCH (06:43)
[2018-09-15] MEDS ORDERED: LEVOTHYROXINE SODIUM 50MCG TABLET PO SCH (07:20)
[2018-09-15] MEDS: INSULIN LISPRO 100 UNITS/ML SUBCUT SCH (07:47)
[2018-09-15] MEDS: IPRATROPIUM/ALBUTEROL 0.5-3(2.5)MG/3ML NEB HHN SCH (07:51)
[2018-09-15 08:00] VITALS: BP 116/57
[2018-09-15] MEDS: ZINC SULFATE 220 MG ( 50 ) CAPSULE PO SCH (09:02)
[2018-09-15] MEDS: MEMANTINE HCL 10MG TABLET PO SCH (09:02)
[2018-09-15] MEDS: CLOPIDOGREL 75MG TABLET PO SCH (09:02)
[2018-09-15] MEDS: FUROSEMIDE 20MG TABLET PO SCH (09:02)
[2018-09-15] MEDS: NITROFURANTOIN 100MG M/M CAPSULE PO SCH (09:06)
[2018-09-15] MEDS: ASCORBIC ACID 500 MG TABLET PO SCH (09:06)
[2018-09-15] MEDS: SPIRONOLACTONE 25MG TABLET PO SCH (09:06)
[2018-09-15] MEDS: FAMOTIDINE 20MG TABLET PO SCH (09:06)
[2018-09-15 11:28] VITALS: BP 127/64
[2018-09-15 12:00] VITALS: BP 127/64
[2018-09-15] MEDS ORDERED: NYSTATIN POWDER 15GM TOP SCH (13:00)
== END 2018-09-15 12:48 | disposition home or self-care (01) | DRG 720 ==
LOC: ER 11:22 → 7WST 14:01 → EDBEDREQ 14:10 → SUPCPDRO 14:46 → ENRESERV 14:51 → 6WST 09-13 20:53
PROVIDERS: ADMIT Internal Medicine; ATTEND Internal Medicine
DX: A41.51 Sepsis due to Escherichia coli [E. coli] (principal); J96.01 Acute respiratory failure with hypoxia; G92 Toxic encephalopathy; J18.9 Pneumonia, unspecified organism; E44.0 Moderate protein-calorie malnutrition; E11.9 Type 2 diabetes mellitus without complications; G30.9 Alzheimer's disease, unspecified; J44.0 Chronic obstructive pulmonary disease with (acute) lower respiratory infection; F02.80 Dementia in other diseases classified elsewhere, unspecified severity, without behavioral disturbance, psychotic disturbance, mood disturbance, and anxiety; E83.51 Hypocalcemia; I10 Essential (primary) hypertension; A49.8 Other bacterial infections of unspecified site; N39.0 Urinary tract infection, site not specified; E03.9 Hypothyroidism, unspecified; E78.5 Hyperlipidemia, unspecified; I25.10 Atherosclerotic heart disease of native coronary artery without angina pectoris; K21.9 Gastro-esophageal reflux disease without esophagitis; Z79.4 Long term (current) use of insulin; Z90.49 Acquired absence of other specified parts of digestive tract; Z95.5 Presence of coronary angioplasty implant and graft; Z68.29 Body mass index [BMI] 29.0-29.9, adult; Z88.0 Allergy status to penicillin; Z88.8 Allergy status to other drugs, medicaments and biological substances
CPT/HCPCS: 36415; 71045; 71275; 80061; 82550; 82553; 82962; 83036; 83605; 83880; 84145; 84439; 84443; 84484; 85379; 87077; 87186; 93005; 93970; 94640; 96374; 97162; 97166; 97530; 97535; 99285; C1893; J0456; J0696; J1650; J1815; J1956; J2405; J7030; J7060; J7608; J7620; Q9967

== ENCOUNTER 2018-11-27 09:29 | Emergency (ER) | payer MEDICARE, MEDICAID ==
[~2018-11-27] VITALS: Ht 152.4 cm; Wt 80.0 kg
[~2018-11-27 09:29] MED LIST changes: +TAMS-11 PO
[2018-11-27] MEDS ORDERED: ONDANSETRON HCL 4MG/2ML INJ IV STA (10:32)
[2018-11-27 11:21] LABS: HEMOGLOBIN. 13.4 g/dL (12.0-16.0); LYMPHOCYTES % 30.9 % (20.0-50.0); MEAN CORPUSCULAR HEMOGLOBIN 29.2 pg (28.0-32.0); MEAN CORPUSCULAR VOLUME 89.6 fL (81.0-99.0); MEAN PLATELET VOLUME 10.1 fl (7.4-10.4); MONOCYTES % 7.1 % (2.0-8.0); PLATELET 265 x1000/uL (130-400); RED BLOOD CELL COUNT 4.58 mill/uL (4.2-5.4)
[2018-11-27 11:24] LABS: CHLORIDE 103 mEq/L (98-107)
[2018-11-27 11:27] LABS: PARTIAL THROMBOPLASTIN TIME 28.5 sec (23.4-31.0); PROTHROMBIN TIME 10.1 sec (9.6-11.0)
[2018-11-27 11:31] LABS: ETHANOL BLOOD < 10 mg/dL
[2018-11-27 11:36] LABS: CLARITY URINE CLOUDY (CLEAR); COLOR URINE YELLOW (YELLOW); KETONES URINE NEGATIVE (NEGATIVE); LEUKOCYTE ESTERASE URINE 2+ (NEGATIVE); NITRITE URINE NEGATIVE (NEGATIVE); OCCULT BLOOD URINE NEGATIVE (NEGATIVE); PH URINE 6.5 (4.5-8.0); PROTEIN URINE NEGATIVE (NEGATIVE); SPECIFIC GRAVITY URINE 1.022 (1.005-1.030); UROBILINOGEN URINE 0.2 E.U./dL (0.2-1.0)
[2018-11-27 11:57] LABS: *BENZODIAZEPINES SCREEN URINE NEGATIVE (NEGATIVE); *COCAINE SCREEN URINE NEGATIVE (NEGATIVE); OPIATES URINE SCREEN NEGATIVE (NEGATIVE)
[2018-11-27 11:58] LABS: *AMPHETAMINES SCREEN URINE NEGATIVE (NEGATIVE); *BARBITURATES SCREEN URINE NEGATIVE (NEGATIVE); CANNABINOID URINE SCREEN NEGATIVE (NEGATIVE); METHADONE URINE SCREEN NEGATIVE (NEGATIVE); PHENCYCLIDINE URINE SCREEN NEGATIVE (NEGATIVE)
[2018-11-27] MEDS ORDERED: LEVOFLOXACIN 750MG PREMIX 150 ML IV ONE (12:30)
[2018-11-27 14:39] VITALS: BP 117/62
== END 2018-11-27 14:57 | disposition home or self-care (01) ==
LOC: ER 09:29 → CANBEDREQ 15:33
DX: R53.1 Weakness (principal); N39.0 Urinary tract infection, site not specified; E11.9 Type 2 diabetes mellitus without complications; Z88.0 Allergy status to penicillin; Z88.6 Allergy status to analgesic agent
CPT/HCPCS: 36415; 71045; 80053; 80305; 80320; 81003; 82962; 83690; 83880; 84443; 84484; 85025; 85610; 85730; 87077; 87086; 87186; 93005; 96365; 96375; 99284; J1956; J2405; G0480

== ENCOUNTER 2018-12-08 13:40 | Inpatient (IN) | payer MEDICARE, MEDICAID ==
[~2018-12-08] VITALS: Ht 315 cm; Wt 84.4 kg
[2018-12-08 15:17] LABS: BASOPHILS % 0.7 % (0.0-2.0); EOSINOPHILS % 1.6 % (0.0-5.0); HEMATOCRIT. 40.2 % (36.0-48.0); HEMOGLOBIN. 13.3 g/dL (12.0-16.0); MEAN CORPUSCULAR HEMOGLOBIN 29.3 pg (28.0-32.0); MEAN CORPUSCULAR VOLUME 88.6 fL (81.0-99.0); MEAN PLATELET VOLUME 10.1 fl (7.4-10.4); NEUTROPHILS % 62.7 % (40.0-76.0); PLATELET 260 x1000/uL (130-400); RED BLOOD CELL COUNT 4.54 mill/uL (4.2-5.4)
[2018-12-08 15:19] LABS: CHLORIDE 103 mEq/L (98-107); PROTHROMBIN TIME 10.2 sec (9.6-11.0)
[2018-12-08 15:32] LABS: CLARITY URINE CLEAR (CLEAR); COLOR URINE YELLOW (YELLOW); KETONES URINE NEGATIVE (NEGATIVE); LEUKOCYTE ESTERASE URINE 1+ (NEGATIVE); NITRITE URINE POSITIVE (NEGATIVE); OCCULT BLOOD URINE NEGATIVE (NEGATIVE); PH URINE 6.5 (4.5-8.0); PROTEIN URINE NEGATIVE (NEGATIVE); SPECIFIC GRAVITY URINE 1.022 (1.005-1.030); UROBILINOGEN URINE 0.2 E.U./dL (0.2-1.0)
[2018-12-08 15:37] LABS: BG BASE EXCESS 4.4 mmol/L (-2.0-2.0); BG CARBOXYHEMOGLOBIN 0.6 % (0.5-1.5); BG DEOXYHEMOGLOBIN 10.9 % (0.0-5.0); BG FRACTION INSPIRED OXYGEN 21; BG HCO3 ACT 30.5 mmol/L (22.0-26.0); BG METHEMOGLOBIN 0.4 % (0.0-1.5); BG OXYHEMOGLOBIN 88.1 % (94.0-97.0); BG PCO2 51.8 mmHg (35.0-45.0); BG PH 7.388 (7.350-7.450); BG PO2 56.7 mmHg (75.0-100.0); BG SAMPLE SITE RIGHT BRACHIAL; BG VENT MODE ROOM AIR
[2018-12-08] MEDS ORDERED: LEVOFLOXACIN 750MG PREMIX 150 ML IV ONE (16:00)
[2018-12-08] MEDS ORDERED: MAGNESIUM/ALUMINUM HYDROXIDE/SIMETHICONE 30ML UDC PO PRN (18:30)
[2018-12-08] MEDS ORDERED: CLONIDINE 0.1MG TABLET PO PRN (18:30)
[2018-12-08] MEDS ORDERED: ACETAMINOPHEN 325MG TABLET PO PRN (18:30)
[2018-12-08] MEDS ORDERED: DOCUSATE SODIUM 100MG CAPSULE PO PRN (18:30)
[2018-12-08] MEDS ORDERED: LEVOFLOXACIN 500MG PREMIX 100 ML IV SCH (18:30)
[2018-12-08 21:55] VITALS: BP 120/64
[2018-12-08 23:54] VITALS: BP 120/69
[2018-12-09] VITALS (7 sets, daily range): BP systolic 93–149; BP diastolic 45–68
[2018-12-09 07:06] LABS: BASOPHILS % 0.7 % (0.0-2.0); EOSINOPHILS % 1.7 % (0.0-5.0); HEMATOCRIT. 38.5 % (36.0-48.0); HEMOGLOBIN. 12.8 g/dL (12.0-16.0); LYMPHOCYTES % 23.9 % (20.0-50.0); MEAN CORPUSCULAR HEMOGLOBIN 29.1 pg (28.0-32.0); MEAN CORPUSCULAR VOLUME 87.4 fL (81.0-99.0); MEAN PLATELET VOLUME 10.3 fl (7.4-10.4); MONOCYTES % 7.1 % (2.0-8.0); NEUTROPHILS % 66.6 % (40.0-76.0); PLATELET 229 x1000/uL (130-400); RED BLOOD CELL COUNT 4.41 mill/uL (4.2-5.4); RED CELL DISTRIBUTION WIDTH 14.7 % (11.6-14.6)
[2018-12-09 07:39] LABS: CHLORIDE 102 mEq/L (98-107)
[2018-12-09] MEDS: FUROSEMIDE 40MG/4ML VIAL IV SCH (08:41)
[2018-12-09] MEDS: CLOPIDOGREL 75MG TABLET PO SCH (08:41)
[2018-12-09] MEDS: ENOXAPARIN 40MG/0.4ML SYR SUBCUT SCH (08:43)
[2018-12-09] MEDS: LEVOTHYROXINE SODIUM 50MCG TABLET PO SCH (10:35)
[2018-12-09] MEDS: MEMANTINE HCL 10MG TABLET PO SCH ×2 (10:35→17:07)
[2018-12-09] MEDS: TAMSULOSIN HCL 0.4MG SR CAPSULE PO SCH (10:35)
[2018-12-09] MEDS: DONEPEZIL HCL 10MG TABLET PO SCH (10:35)
[2018-12-09] MEDS: SPIRONOLACTONE 25MG TABLET PO SCH (10:36)
[2018-12-09] MEDS: ONDANSETRON HCL 4MG/2ML INJ IV PRN (13:26)
[2018-12-09] MEDS: LEVOFLOXACIN 250MG PREMIX 50 ML IV SCH (17:05)
[2018-12-09] MEDS: OMEPRAZOLE 20MG CAPSULE EXTENDED RELEASE PO SCH (17:07)
[2018-12-09] MEDS ORDERED: DEXTROSE 50% WATER 50ML SYRINGE IV PRN (18:15)
[2018-12-09] MEDS ORDERED: INSULIN LISPRO 100 UNITS/ML SUBCUT NR (18:30)
[2018-12-09] MEDS: QUETIAPINE FUMARATE 50MG TABLET PO SCH (21:05)
[2018-12-09] MEDS: CLONAZEPAM 1MG TABLET PO SCH (21:05)
[2018-12-09] MEDS: BLOOD SUGAR DIAGNOSTIC STRIP TEST SCH (21:05)
[2018-12-09] MEDS: INSULIN LISPRO 100 UNITS/ML SUBCUT SCH (21:18)
[2018-12-09] MEDS: INSULIN GLARGINE UD 100 UNITS/ML SYR SUBCUT SCH (21:19)
[2018-12-10] VITALS: BP 125/60
[2018-12-10 04:00] VITALS: BP 148/60
[2018-12-10] MEDS: BLOOD SUGAR DIAGNOSTIC STRIP TEST SCH ×3 (06:52→21:56)
[2018-12-10] MEDS: LEVOTHYROXINE SODIUM 50MCG TABLET PO SCH (06:55)
[2018-12-10] MEDS: INSULIN LISPRO 100 UNITS/ML SUBCUT SCH ×4 (06:55→22:05)
[2018-12-10 08:00] VITALS: BP 151/61
[2018-12-10] MEDS: MEMANTINE HCL 10MG TABLET PO SCH ×2 (08:33→16:20)
[2018-12-10] MEDS: SPIRONOLACTONE 25MG TABLET PO SCH (08:33)
[2018-12-10] MEDS: DONEPEZIL HCL 10MG TABLET PO SCH (08:33)
[2018-12-10] MEDS: OMEPRAZOLE 20MG CAPSULE EXTENDED RELEASE PO SCH ×2 (08:33→16:20)
[2018-12-10] MEDS: CLOPIDOGREL 75MG TABLET PO SCH (08:34)
[2018-12-10] MEDS: TAMSULOSIN HCL 0.4MG SR CAPSULE PO SCH (08:34)
[2018-12-10] MEDS: QUETIAPINE FUMARATE 25MG TABLET PO SCH (08:34)
[2018-12-10] MEDS: ENOXAPARIN 40MG/0.4ML SYR SUBCUT SCH (08:35)
[2018-12-10] MEDS: FUROSEMIDE 40MG/4ML VIAL IV SCH (08:35)
[2018-12-10] MEDS ORDERED: CLOPIDOGREL 75MG TABLET PO SCH (10:15)
[2018-12-10] MEDS: LEVOFLOXACIN 250MG PREMIX 50 ML IV SCH (16:20)
[2018-12-10 20:00] VITALS: BP 123/62
[2018-12-10] MEDS: CLONAZEPAM 1MG TABLET PO SCH (20:13)
[2018-12-10] MEDS: QUETIAPINE FUMARATE 50MG TABLET PO SCH (20:20)
[2018-12-10] MEDS: INSULIN GLARGINE UD 100 UNITS/ML SYR SUBCUT SCH (22:06)
[2018-12-11] VITALS: BP 120/66
[2018-12-11 04:00] VITALS: BP 145/56
[2018-12-11 07:20] LABS: BASOPHILS % 0.9 % (0.0-2.0); HEMATOCRIT. 39.7 % (36.0-48.0); LYMPHOCYTES % 23.3 % (20.0-50.0); MEAN CORPUSCULAR HEMOGLOBIN 28.7 pg (28.0-32.0); MEAN CORPUSCULAR VOLUME 87.7 fL (81.0-99.0); MONOCYTES % 7.3 % (2.0-8.0); NEUTROPHILS % 66.5 % (40.0-76.0); PLATELET 252 x1000/uL (130-400); RED BLOOD CELL COUNT 4.52 mill/uL (4.2-5.4); RED CELL DISTRIBUTION WIDTH 14.7 % (11.6-14.6)
[2018-12-11 07:24] LABS: CHLORIDE 103 mEq/L (98-107)
[2018-12-11 08:00] VITALS: BP 125/58
[2018-12-11] MEDS: CLOPIDOGREL 75MG TABLET PO SCH (08:41)
[2018-12-11] MEDS: MEMANTINE HCL 10MG TABLET PO SCH ×2 (08:41→17:01)
[2018-12-11] MEDS: SPIRONOLACTONE 25MG TABLET PO SCH (08:41)
[2018-12-11] MEDS: TAMSULOSIN HCL 0.4MG SR CAPSULE PO SCH (08:41)
[2018-12-11] MEDS: OMEPRAZOLE 20MG CAPSULE EXTENDED RELEASE PO SCH ×2 (08:41→17:01)
[2018-12-11] MEDS: QUETIAPINE FUMARATE 25MG TABLET PO SCH (08:42)
[2018-12-11] MEDS: FUROSEMIDE 40MG/4ML VIAL IV SCH (08:42)
[2018-12-11] MEDS: ENOXAPARIN 40MG/0.4ML SYR SUBCUT SCH (08:42)
[2018-12-11] MEDS: DONEPEZIL HCL 10MG TABLET PO SCH (08:42)
[2018-12-11] MEDS: LEVOTHYROXINE SODIUM 50MCG TABLET PO SCH (08:42)
[2018-12-11 11:32] VITALS: BP 120/59
[2018-12-11] MEDS: BLOOD SUGAR DIAGNOSTIC STRIP TEST SCH ×3 (11:47→20:52)
[2018-12-11] MEDS: INSULIN LISPRO 100 UNITS/ML SUBCUT SCH ×3 (11:48→20:53)
[2018-12-11] MEDS: POTASSIUM CHLORIDE 20MEQ TABLET SR PO SCH (12:46)
[2018-12-11 16:00] VITALS: BP 125/65
[2018-12-11] MEDS: NITROFURANTOIN 100MG M/M CAPSULE PO SCH (17:01)
[2018-12-11 20:00] VITALS: BP 153/72
[2018-12-11] MEDS: CLONAZEPAM 1MG TABLET PO SCH (20:52)
[2018-12-11] MEDS: QUETIAPINE FUMARATE 50MG TABLET PO SCH (20:52)
[2018-12-11] MEDS: INSULIN GLARGINE UD 100 UNITS/ML SYR SUBCUT SCH (21:31)
[2018-12-12] VITALS: BP 101/62
[2018-12-12 04:00] VITALS: BP 131/71
[2018-12-12] MEDS: LEVOTHYROXINE SODIUM 50MCG TABLET PO SCH (06:44)
[2018-12-12] MEDS: BLOOD SUGAR DIAGNOSTIC STRIP TEST SCH ×4 (06:44→21:05)
[2018-12-12] MEDS: INSULIN LISPRO 100 UNITS/ML SUBCUT SCH ×4 (06:44→21:00)
[2018-12-12 07:53] LABS: CHLORIDE 105 mEq/L (98-107)
[2018-12-12 07:57] LABS: BASOPHILS % 0.8 % (0.0-2.0); EOSINOPHILS % 2.4 % (0.0-5.0); HEMATOCRIT. 41.5 % (36.0-48.0); HEMOGLOBIN. 13.7 g/dL (12.0-16.0); LYMPHOCYTES % 31.8 % (20.0-50.0); MEAN CORPUSCULAR HEMOGLOBIN 28.9 pg (28.0-32.0); MEAN CORPUSCULAR VOLUME 87.5 fL (81.0-99.0); MEAN PLATELET VOLUME 10.1 fl (7.4-10.4); MONOCYTES % 8.8 % (2.0-8.0); NEUTROPHILS % 56.2 % (40.0-76.0); PLATELET 256 x1000/uL (130-400); RED BLOOD CELL COUNT 4.74 mill/uL (4.2-5.4); RED CELL DISTRIBUTION WIDTH 15.1 % (11.6-14.6)
[2018-12-12 08:00] VITALS: BP 155/76
[2018-12-12] MEDS: DONEPEZIL HCL 10MG TABLET PO SCH (08:27)
[2018-12-12] MEDS: CLOPIDOGREL 75MG TABLET PO SCH (08:27)
[2018-12-12] MEDS: FUROSEMIDE 40MG/4ML VIAL IV SCH (08:27)
[2018-12-12] MEDS: NITROFURANTOIN 100MG M/M CAPSULE PO SCH ×2 (08:27→16:21)
[2018-12-12] MEDS: TAMSULOSIN HCL 0.4MG SR CAPSULE PO SCH (08:27)
[2018-12-12] MEDS: POTASSIUM CHLORIDE 20MEQ TABLET SR PO SCH (08:27)
[2018-12-12] MEDS: OMEPRAZOLE 20MG CAPSULE EXTENDED RELEASE PO SCH ×2 (08:27→16:21)
[2018-12-12] MEDS: ENOXAPARIN 40MG/0.4ML SYR SUBCUT SCH (08:29)
[2018-12-12] MEDS: QUETIAPINE FUMARATE 25MG TABLET PO SCH (08:33)
[2018-12-12] MEDS: SPIRONOLACTONE 25MG TABLET PO SCH (09:27)
[2018-12-12] MEDS: MEMANTINE HCL 10MG TABLET PO SCH ×2 (09:27→16:21)
[2018-12-12 12:00] VITALS: BP 116/65
[2018-12-12 16:00] VITALS: BP 110/65
[2018-12-12 20:00] VITALS: BP 124/71
[2018-12-12] MEDS: CLONAZEPAM 1MG TABLET PO SCH (21:04)
[2018-12-12] MEDS: QUETIAPINE FUMARATE 50MG TABLET PO SCH (21:08)
[2018-12-12] MEDS: INSULIN GLARGINE UD 100 UNITS/ML SYR SUBCUT SCH (21:55)
[2018-12-13] VITALS: BP 141/75
[2018-12-13 04:00] VITALS: BP 120/74
[2018-12-13] MEDS: ONDANSETRON HCL 4MG/2ML INJ IV PRN (06:13)
[2018-12-13] MEDS: LEVOTHYROXINE SODIUM 50MCG TABLET PO SCH (06:13)
[2018-12-13 07:04] LABS: HEMATOCRIT. 40.7 % (36.0-48.0); HEMOGLOBIN. 13.4 g/dL (12.0-16.0); LYMPHOCYTES % 31.2 % (20.0-50.0); MEAN CORPUSCULAR HEMOGLOBIN 28.8 pg (28.0-32.0); MEAN CORPUSCULAR VOLUME 87.9 fL (81.0-99.0); MEAN PLATELET VOLUME 10.1 fl (7.4-10.4); MONOCYTES % 8.5 % (2.0-8.0); NEUTROPHILS % 56.3 % (40.0-76.0); PLATELET 239 x1000/uL (130-400); RED BLOOD CELL COUNT 4.63 mill/uL (4.2-5.4); RED CELL DISTRIBUTION WIDTH 15.3 % (11.6-14.6)
[2018-12-13 07:07] LABS: CHLORIDE 103 mEq/L (98-107)
[2018-12-13 08:00] VITALS: BP 136/76
[2018-12-13] MEDS: SPIRONOLACTONE 25MG TABLET PO SCH (08:40)
[2018-12-13] MEDS: MEMANTINE HCL 10MG TABLET PO SCH ×2 (08:41→16:30)
[2018-12-13] MEDS: OMEPRAZOLE 20MG CAPSULE EXTENDED RELEASE PO SCH ×2 (08:41→16:29)
[2018-12-13] MEDS: CLOPIDOGREL 75MG TABLET PO SCH (08:41)
[2018-12-13] MEDS: TAMSULOSIN HCL 0.4MG SR CAPSULE PO SCH (08:41)
[2018-12-13] MEDS: QUETIAPINE FUMARATE 25MG TABLET PO SCH (08:41)
[2018-12-13] MEDS: POTASSIUM CHLORIDE 20MEQ TABLET SR PO SCH (08:41)
[2018-12-13] MEDS: ENOXAPARIN 40MG/0.4ML SYR SUBCUT SCH (08:45)
[2018-12-13] MEDS: NITROFURANTOIN 100MG M/M CAPSULE PO SCH ×2 (08:45→16:29)
[2018-12-13] MEDS: DONEPEZIL HCL 10MG TABLET PO SCH (09:43)
[2018-12-13] MEDS: FUROSEMIDE 40MG/4ML VIAL IV SCH (09:43)
[2018-12-13 12:00] VITALS: BP 117/74
[2018-12-13] MEDS: INSULIN LISPRO 100 UNITS/ML SUBCUT SCH ×2 (12:18→16:59)
[2018-12-13] MEDS: BLOOD SUGAR DIAGNOSTIC STRIP TEST SCH ×2 (12:18→16:30)
[2018-12-13 18:10] VITALS: BP 142/82
== END 2018-12-13 16:59 | disposition home health service (06) | DRG 194 ==
LOC: ER 13:40 → 8WST 16:11 → ENRESERV 20:30 → 8WST 12-11 16:54
PROVIDERS: ADMIT Family Medicine Adult Medicine; ATTEND Family Medicine Adult Medicine
DX: I11.0 Hypertensive heart disease with heart failure (principal); J96.01 Acute respiratory failure with hypoxia; N39.0 Urinary tract infection, site not specified; I50.21 Acute systolic (congestive) heart failure; G30.9 Alzheimer's disease, unspecified; E44.1 Mild protein-calorie malnutrition; F02.80 Dementia in other diseases classified elsewhere, unspecified severity, without behavioral disturbance, psychotic disturbance, mood disturbance, and anxiety; E11.649 Type 2 diabetes mellitus with hypoglycemia without coma; J44.9 Chronic obstructive pulmonary disease, unspecified; E03.9 Hypothyroidism, unspecified; I25.10 Atherosclerotic heart disease of native coronary artery without angina pectoris; E78.5 Hyperlipidemia, unspecified; E87.6 Hypokalemia; K21.9 Gastro-esophageal reflux disease without esophagitis; R09.02 Hypoxemia; Z79.4 Long term (current) use of insulin; Z82.49 Family history of ischemic heart disease and other diseases of the circulatory system; Z79.84 Long term (current) use of oral hypoglycemic drugs; Z88.0 Allergy status to penicillin; Z88.6 Allergy status to analgesic agent
CPT/HCPCS: 36415; 36600; 71045; 80048; 81003; 82375; 82805; 82962; 83605; 83735; 84145; 84439; 84443; 84484; 87077; 87186; 93005; 93306; 93970; 97162; 99285; J1650; J1815; J1940; J1956; J2405; J7040

== ENCOUNTER 2018-12-16 13:04 | Emergency (ER) | payer MEDICARE, MEDICAID ==
[~2018-12-16] VITALS: Ht 160 cm; Wt 68.0 kg
[2018-12-16] MEDS ORDERED: SORBITOL 70% SOLN 30ML PO ONE (16:30)
[2018-12-16] MEDS ORDERED: NA PHOS,M-B/NA PHOS,DI-BA ENEMA 118ML PR ONE (16:30)
[2018-12-16 18:30] VITALS: BP 131/68
== END 2018-12-16 18:54 | disposition home or self-care (01) ==
LOC: ER 13:04
DX: K59.00 Constipation, unspecified (principal); R10.84 Generalized abdominal pain; E11.9 Type 2 diabetes mellitus without complications; I25.10 Atherosclerotic heart disease of native coronary artery without angina pectoris; E66.01 Morbid (severe) obesity due to excess calories; Z68.26 Body mass index [BMI] 26.0-26.9, adult; Z88.6 Allergy status to analgesic agent; Z88.0 Allergy status to penicillin; Z79.4 Long term (current) use of insulin; Z90.49 Acquired absence of other specified parts of digestive tract
CPT/HCPCS: 74176; 99284

== ENCOUNTER 2018-12-23 09:01 | Emergency (ER) | payer MEDICARE, MEDICAID ==
[~2018-12-23] VITALS: Ht 167.6 cm; Wt 82.0 kg
[~2018-12-23 09:01] MED LIST changes: -INSLIS SQ; -INSLIS SUBCUT; -INSU3INS6 SUBCUT
[2018-12-23 10:34] LABS: BASOPHILS % 0.8 % (0.0-2.0); EOSINOPHILS % 2.2 % (0.0-5.0); HEMOGLOBIN. 13.3 g/dL (12.0-16.0); LYMPHOCYTES % 27.7 % (20.0-50.0); MEAN CORPUSCULAR HEMOGLOBIN 28.7 pg (28.0-32.0); MEAN CORPUSCULAR VOLUME 88.7 fL (81.0-99.0); MEAN PLATELET VOLUME 10.4 fl (7.4-10.4); MONOCYTES % 7.7 % (2.0-8.0); NEUTROPHILS % 61.6 % (40.0-76.0); PLATELET 234 x1000/uL (130-400); RED BLOOD CELL COUNT 4.63 mill/uL (4.2-5.4); RED CELL DISTRIBUTION WIDTH 15.8 % (11.6-14.6)
[2018-12-23 10:37] LABS: CHLORIDE 105 mEq/L (98-107)
[2018-12-23 13:17] VITALS: BP 146/70
== END 2018-12-23 13:18 | disposition home or self-care (01) ==
LOC: ER 09:01
DX: J00 Acute nasopharyngitis [common cold] (principal); E11.9 Type 2 diabetes mellitus without complications; I10 Essential (primary) hypertension; R68.83 Chills (without fever); Z88.0 Allergy status to penicillin; Z79.82 Long term (current) use of aspirin; Z79.899 Other long term (current) drug therapy
CPT/HCPCS: 36415; 80048; 84443; 93005; 99284

== ENCOUNTER 2019-01-02 23:10 | Emergency (ER) | payer MEDICARE, MEDICAID ==
[~2019-01-02] VITALS: Ht 157.5 cm; Wt 111.0 kg
[2019-01-03 00:18] LABS: EOSINOPHILS % 2.9 % (0.0-5.0); HEMATOCRIT. 36.7 % (36.0-48.0); HEMOGLOBIN. 12.1 g/dL (12.0-16.0); LYMPHOCYTES % 29.2 % (20.0-50.0); MEAN CORPUSCULAR VOLUME 87.7 fL (81.0-99.0); MEAN PLATELET VOLUME 9.6 fl (7.4-10.4); MONOCYTES % 7.9 % (2.0-8.0); PLATELET 230 x1000/uL (130-400); RED BLOOD CELL COUNT 4.18 mill/uL (4.2-5.4); RED CELL DISTRIBUTION WIDTH 15.3 % (11.6-14.6)
[2019-01-03 00:22] LABS: CHLORIDE 104 mEq/L (98-107)
[2019-01-03 01:06] VITALS: BP 108/64
== END 2019-01-03 01:20 | disposition home or self-care (01) ==
LOC: ER 23:10
DX: R68.83 Chills (without fever) (principal)
CPT/HCPCS: 36415; 87804; 99283

== ENCOUNTER 2019-01-23 03:44 | Emergency (ER) | payer MEDICARE, MEDICAID ==
[~2019-01-23] VITALS: Ht 162.6 cm; Wt 68.0 kg
[2019-01-23 04:54] LABS: BASOPHILS % 0.7 % (0.0-2.0); EOSINOPHILS % 3.4 % (0.0-5.0); HEMATOCRIT. 39.3 % (36.0-48.0); HEMOGLOBIN. 13.1 g/dL (12.0-16.0); LYMPHOCYTES % 26.4 % (20.0-50.0); MEAN CORPUSCULAR VOLUME 87.2 fL (81.0-99.0); MEAN PLATELET VOLUME 9.8 fl (7.4-10.4); MONOCYTES % 8.6 % (2.0-8.0); NEUTROPHILS % 60.9 % (40.0-76.0); PLATELET 255 x1000/uL (130-400); RED BLOOD CELL COUNT 4.51 mill/uL (4.2-5.4); RED CELL DISTRIBUTION WIDTH 15.4 % (11.6-14.6)
[2019-01-23 04:58] LABS: CHLORIDE 105 mEq/L (98-107)
[2019-01-23 05:43] VITALS: BP 117/66
== END 2019-01-23 05:59 | disposition home or self-care (01) ==
LOC: ER 03:44
DX: J18.9 Pneumonia, unspecified organism (principal); H26.40 Unspecified secondary cataract; I10 Essential (primary) hypertension; E11.9 Type 2 diabetes mellitus without complications; Z88.6 Allergy status to analgesic agent; Z88.0 Allergy status to penicillin; Z79.899 Other long term (current) drug therapy
CPT/HCPCS: 36415; 71045; 99284

== ENCOUNTER 2019-03-26 13:38 | Emergency (ER) | payer MEDICARE, MEDICAID ==
[~2019-03-26] VITALS: Ht 162.6 cm; Wt 81.0 kg
[~2019-03-26 13:38] MED LIST changes: +OMEP20CA14 PO; -OMEP20CA5 PO
[2019-03-26] MEDS ORDERED: SODIUM CHLORIDE 0.9% 1,000 ML IV ONE (14:12)
[2019-03-26] MEDS ORDERED: ACETAMINOPHEN 325MG TABLET PO STA (14:12)
[2019-03-26] MEDS ORDERED: ONDANSETRON HCL 4MG/2ML INJ IV ONE (14:15)
[2019-03-26 14:59] LABS: BASOPHILS % 0.7 % (0.0-2.0); EOSINOPHILS % 1.7 % (0.0-5.0); HEMATOCRIT. 41.2 % (36.0-48.0); HEMOGLOBIN. 13.4 g/dL (12.0-16.0); LYMPHOCYTES % 29.6 % (20.0-50.0); MEAN CORPUSCULAR HEMOGLOBIN 27.5 pg (28.0-32.0); MEAN CORPUSCULAR VOLUME 84.7 fL (81.0-99.0); MONOCYTES % 7.8 % (2.0-8.0); NEUTROPHILS % 60.2 % (40.0-76.0); PLATELET 254 x1000/uL (130-400); RED BLOOD CELL COUNT 4.87 mill/uL (4.2-5.4); RED CELL DISTRIBUTION WIDTH 15.4 % (11.6-14.6)
[2019-03-26 15:05] LABS: CHLORIDE 104 mEq/L (98-107)
[2019-03-26 16:42] LABS: CLARITY URINE CLEAR (CLEAR); COLOR URINE YELLOW (YELLOW); KETONES URINE NEGATIVE (NEGATIVE); LEUKOCYTE ESTERASE URINE 1+ (NEGATIVE); NITRITE URINE NEGATIVE (NEGATIVE); OCCULT BLOOD URINE NEGATIVE (NEGATIVE); PH URINE 6.5 (4.5-8.0); PROTEIN URINE NEGATIVE (NEGATIVE); SPECIFIC GRAVITY URINE 1.008 (1.005-1.030); UROBILINOGEN URINE 0.2 E.U./dL (0.2-1.0)
[2019-03-26 19:10] VITALS: BP 128/58
== END 2019-03-26 19:10 | disposition home or self-care (01) ==
LOC: ER 14:00
DX: M79.10 Myalgia, unspecified site (principal); M62.81 Muscle weakness (generalized); N39.0 Urinary tract infection, site not specified; I10 Essential (primary) hypertension; E11.9 Type 2 diabetes mellitus without complications; Z88.6 Allergy status to analgesic agent; Z88.0 Allergy status to penicillin
CPT/HCPCS: 36415; 71045; 80053; 81003; 83880; 84484; 85025; 87077; 87086; 87186; 93005; 96361; 96374; 99284; J2405; J7030

== ENCOUNTER 2019-09-07 11:38 | Inpatient (IN) | payer MEDICARE, MEDICAID ==
[~2019-09-07] VITALS: Ht 165.1 cm; Wt 90.7 kg
[2019-09-07] MEDS ORDERED: SODIUM CHLORIDE 0.9% 1,000 ML IV ONE (11:46)
[2019-09-07] MEDS ORDERED: ONDANSETRON HCL 4MG/2ML INJ IV STA (11:46)
[2019-09-07] MEDS ORDERED: MORPHINE SULFATE 4 MG/ML CPJ (NOT FOR IM USE) IV STA (11:46)
[2019-09-07 12:19] LABS: BASOPHILS % 1.1 % (0.0-2.0); EOSINOPHILS % 2.1 % (0.0-5.0); HEMATOCRIT. 42.6 % (36.0-48.0); HEMOGLOBIN. 13.9 g/dL (12.0-16.0); LYMPHOCYTES % 26.5 % (20.0-50.0); MEAN CORPUSCULAR HEMOGLOBIN 27.6 pg (28.0-32.0); MEAN CORPUSCULAR VOLUME 84.3 fL (81.0-99.0); MEAN PLATELET VOLUME 9.7 fl (7.4-10.4); MONOCYTES % 7.9 % (2.0-8.0); NEUTROPHILS % 62.4 % (40.0-76.0); PLATELET 275 x1000/uL (130-400); RED BLOOD CELL COUNT 5.05 mill/uL (4.2-5.4); RED CELL DISTRIBUTION WIDTH 16.1 % (11.6-14.6)
[2019-09-07 12:25] LABS: CHLORIDE 102 mEq/L (98-107)
[2019-09-07 12:48] LABS: PROTHROMBIN TIME 10.4 sec (9.6-11.0)
[2019-09-07] MEDS ORDERED: IOHEXOL-300 100 ML BOTTLE ONE (13:52)
[2019-09-07 15:24] LABS: CLARITY URINE CLEAR (CLEAR); COLOR URINE YELLOW (YELLOW); KETONES URINE NEGATIVE (NEGATIVE); LEUKOCYTE ESTERASE URINE 1+ (NEGATIVE); NITRITE URINE NEGATIVE (NEGATIVE); OCCULT BLOOD URINE NEGATIVE (NEGATIVE); PROTEIN URINE NEGATIVE (NEGATIVE); SPECIFIC GRAVITY URINE 1.056 (1.005-1.030); UROBILINOGEN URINE 0.2 E.U./dL (0.2-1.0)
[2019-09-07] MEDS ORDERED: LEVOFLOXACIN 500MG PREMIX 100 ML IV ONE (17:45)
[2019-09-07 21:30] VITALS: BP 118/53
[2019-09-07] MEDS ORDERED: INSU100I28 SQ (23:22)
[2019-09-07] MEDS ORDERED: DONE10TA36 PO (23:22)
[2019-09-07] MEDS ORDERED: INSLIS SUBCUT (23:22)
[2019-09-07] MEDS ORDERED: DEXTROSE 50% WATER 50ML SYRINGE IV PRN (23:30)
[2019-09-07] MEDS ORDERED: ACETAMINOPHEN 650MG/20.3ML UDC PO PRN (23:30)
[2019-09-07] MEDS ORDERED: ONDANSETRON HCL 4MG/2ML INJ IV PRN (23:30)
[2019-09-08] VITALS: BP 118/53
[2019-09-08] MEDS: SODIUM CHLORIDE 0.9% 1,000 ML IV SCH ×2 (03:11→13:10)
[2019-09-08 04:00] VITALS: BP 118/49
[2019-09-08 06:18] LABS: CHLORIDE 107 mEq/L (98-107)
[2019-09-08] MEDS: BLOOD SUGAR DIAGNOSTIC STRIP TEST SCH ×4 (06:41→21:50)
[2019-09-08] MEDS: INSULIN LISPRO 100 UNITS/ML SUBCUT SCH ×5 (06:41→21:51)
[2019-09-08 07:28] LABS: BASOPHILS % 0.8 % (0.0-2.0); EOSINOPHILS % 2.4 % (0.0-5.0); HEMATOCRIT. 40.3 % (36.0-48.0); LYMPHOCYTES % 28.4 % (20.0-50.0); MEAN CORPUSCULAR HEMOGLOBIN 27.2 pg (28.0-32.0); MEAN CORPUSCULAR VOLUME 84.3 fL (81.0-99.0); MEAN PLATELET VOLUME 9.8 fl (7.4-10.4); MONOCYTES % 8.2 % (2.0-8.0); NEUTROPHILS % 60.2 % (40.0-76.0); PLATELET 260 x1000/uL (130-400); RED BLOOD CELL COUNT 4.78 mill/uL (4.2-5.4); RED CELL DISTRIBUTION WIDTH 15.9 % (11.6-14.6)
[2019-09-08 08:00] VITALS: BP 132/63
[2019-09-08] MEDS: ENOXAPARIN 30MG/0.3ML SYR SUBCUT SCH ×2 (10:58→21:49)
[2019-09-08] MEDS: CEFTRIAXONE 1 G PREMIX 50 ML IV SCH (13:00)
[2019-09-08 16:00] VITALS: BP 129/74
[2019-09-08] MEDS: CLOPIDOGREL 75MG TABLET PO SCH (18:16)
[2019-09-08] MEDS: MEMANTINE HCL 10MG TABLET PO SCH (18:16)
[2019-09-08 20:00] VITALS: BP 112/50
[2019-09-08] MEDS ORDERED: QUETIAPINE FUMARATE 50MG TABLET PO SCH (21:00)
[2019-09-08] MEDS ORDERED: MEDICATION NOT ON FORMULARY EA (Clonazepam 2 MG) PO SCH (21:00)
[2019-09-08] MEDS ORDERED: CLONAZEPAM 1MG TABLET PO SCH (21:00)
[2019-09-09] VITALS: BP 134/65
[2019-09-09 04:00] VITALS: BP 134/77
[2019-09-09] MEDS: SODIUM CHLORIDE 0.9% 1,000 ML IV SCH (06:17)
[2019-09-09] MEDS: BLOOD SUGAR DIAGNOSTIC STRIP TEST SCH ×2 (06:21→12:57)
[2019-09-09] MEDS ORDERED: LEVOTHYROXINE SODIUM 50MCG TABLET PO SCH (07:20)
[2019-09-09 08:00] VITALS: BP 143/71
[2019-09-09] MEDS: INSULIN LISPRO 100 UNITS/ML SUBCUT SCH ×4 (08:57→13:07)
[2019-09-09] MEDS ORDERED: POTASSIUM CHLORIDE 20MEQ TABLET SR PO SCH (09:00)
[2019-09-09] MEDS ORDERED: FUROSEMIDE 40MG TABLET PO SCH (09:00)
[2019-09-09] MEDS ORDERED: QUETIAPINE FUMARATE 25MG TABLET PO SCH (09:00)
[2019-09-09] MEDS ORDERED: [UNRECOGNIZED DRUG - OTHER] SQ SCH (09:00)
[2019-09-09] MEDS ORDERED: INSULIN GLARGINE HUM REC ANLOG 40 UNIT SQ SCH (09:00)
[2019-09-09] MEDS ORDERED: DONEPEZIL HCL 10MG TABLET PO SCH ×2 (09:00)
[2019-09-09] MEDS ORDERED: INSULIN GLARGINE UD 100 UNITS/ML SYR SUBCUT SCH (10:00)
[2019-09-09] MEDS: MEMANTINE HCL 10MG TABLET PO SCH (10:14)
[2019-09-09] MEDS: CEFTRIAXONE 1 G PREMIX 50 ML IV SCH (10:15)
[2019-09-09] MEDS: CLOPIDOGREL 75MG TABLET PO SCH (10:16)
[2019-09-09] MEDS: ENOXAPARIN 30MG/0.3ML SYR SUBCUT SCH (10:16)
[2019-09-09 12:00] VITALS: BP 103/48
[2019-09-09 16:00] VITALS: BP 110/56
== END 2019-09-09 14:38 | disposition home or self-care (01) | DRG 463 ==
LOC: ER 11:38 → ENRESERV 20:47 → 6EST 21:48
PROVIDERS: ADMIT Internal Medicine; ATTEND Internal Medicine
DX: N39.0 Urinary tract infection, site not specified (principal); I10 Essential (primary) hypertension; E03.9 Hypothyroidism, unspecified; I25.10 Atherosclerotic heart disease of native coronary artery without angina pectoris; E11.9 Type 2 diabetes mellitus without complications; F03.90 Unspecified dementia, unspecified severity, without behavioral disturbance, psychotic disturbance, mood disturbance, and anxiety; F41.9 Anxiety disorder, unspecified; Z88.0 Allergy status to penicillin; Z79.899 Other long term (current) drug therapy; Z88.6 Allergy status to analgesic agent; E83.51 Hypocalcemia; R53.1 Weakness
CPT/HCPCS: 36415; 71045; 74177; 80048; 80053; 81003; 82962; 83605; 85025; 97162; 99285; J0696; J1650; J1815; J1956; J2270; J2405; J7030; Q9967